=== PATIENT | male | born 1975 | race Caucasian/White ===

== ENCOUNTER 2017-02-04 05:15 | Emergency (ER) | payer BC ==
[2017-02-04 05:25] VITALS: BP 146/67
[2017-02-04] MEDS ORDERED: Sodium Chloride 0.9% 1000 ML 1,000 ML IV STA (05:35)
[2017-02-04] MEDS ORDERED: MOTRIN 600 MG PO ONE (05:42)
--- NOTE | 2017-02-04 05:42 | ERPHSYRPT ---
- History of Present Illness Time Seen by Provider: 02/04/17 05:30 Source: patient Exam Limitations: no limitations Patient Subjective Stated Complaint: fever x "couple days" tmax at home 102; c/ o dizziness and coughing Triage Nursing Assessment: congested, lungs CTA, Physician History: 41 y/o male comes to the ER with complaints of nonproductive cough, congestion and fever of 102 that started on Saturday. Pt arrives with a fever of 102. Pt also admits to having weakness and diffuse muscle aches. Pt denies any shortness of breath, chest pain but admits to some dizziness. His son has similar type symptoms. Timing/Duration: yesterday Cough Quality/Degree: mild Possible Cause: illness exposure Modifying Factors: Improves With: nothing Associated Symptoms: fever, chills, cough, dizziness, muscle aches Allergies/Adverse Reactions: No Known Drug Allergies Allergy (Verified 08/29/15 18:59) Home Medications: Losartan Potassium [Cozaar] 1 tab PO DAILY 05/11/13 [History] Aspirin 81 gm Chew [Baby Aspirin 81 mg Chew] 81 mg PO DAILY 11/30/14 [ History] Lorazepam [Ativan] 2 mg PO BID PRN 11/30/14 [History] Simvastatin 40 mg [Zocor 40 mg] 40 mg PO DAILY 11/30/14 [History] Venlafaxine HCl [Effexor Xr] 150 mg PO DAILY 11/30/14 [History] Hydrocodone Bit/Acetaminophen [[place] 7.5-325 Tablet] 1 ea BID 08/29/15 [History] Hx Tetanus, Diphtheria Vaccination/Date Given: Yes Hx Influenza Vaccination/Date Given: No Hx Pneumococcal Vaccination/Date Given: No Immunizations Up to Date: Yes - Review of Systems Constitutional: Fever, Chills, Weakness Eyes: No Symptoms Ears, Nose, & Throat: No Symptoms Respiratory: Cough, No Dyspnea Cardiac: No Chest Pain, No Edema, No Syncope Abdominal/Gastrointestinal: No Abdominal Pain, No Nausea, No Vomiting, No Diarrhea Genitourinary Symptoms: No Dysuria Musculoskeletal: Myalgias, No Back Pain, No Neck Pain Skin: No Rash Neurological: No Dizziness, No Focal Weakness, No Sensory Changes Psychological: No Symptoms Endocrine: No Symptoms All Other Systems: Reviewed and Negative - Past Medical History Pertinent Past Medical History: Yes Neurological History: No Pertinent History ENT History: No Pertinent History Cardiac History: Hypertension Respiratory History: No Pertinent History Endocrine Medical History: No Pertinent History Musculoskeletal History: No Pertinent History GI Medical History: No Pertinent History History: No Pertinent History Psycho-Social History: Anxiety, Depression, Panic Disorder Male Reproductive Disorders: No Pertinent History - Past Surgical History Past Surgical History: No Neuro Surgical History: No Pertinent History Cardiac: No Pertinent History Respiratory: No Pertinent History Gastrointestinal: No Pertinent History Genitourinary: No Pertinent History Musculoskeletal: No Pertinent History Male Surgical History: No Pertinent History - Social History Smoking Status: Current every day smoker How long have you smoked: 22 Exposure to second hand smoke: Yes Drug Use: none Patient Lives Alone: No - Nursing Vital Signs Nursing Vital Signs: Initial Vital Signs Temperature 102.5 F 02/04/17 05:21 Pulse Rate 110 H 02/04/17 05:21 Respiratory Rate 24 02/04/17 05:21 Blood Pressure 146/67 02/04/17 05:21 O2 Sat by Pulse Oximetry 95 02/04/17 05:21 Pain Scale Pain Intensity 1 - Physical Exam General Appearance: mild distress, alert Eye Exam: PERRL/EOMI, eyes nml inspection Ears, Nose, Throat Exam: normal ENT inspection, TMs normal, pharynx normal, moist mucous membranes Neck Exam: normal inspection, non-tender, supple, full range of motion Respiratory Exam: normal breath sounds, lungs clear, No chest tenderness, No respiratory distress Cardiovascular Exam: regular rate/rhythm, normal heart sounds Gastrointestinal/Abdomen Exam: soft, No tenderness Back Exam: normal inspection, No CVA tenderness, No vertebral tenderness Extremity Exam: normal inspection, normal range of motion Neurologic Exam: alert, oriented x 3, cooperative, normal mood/affect, sensation nml, No motor deficits Skin Exam: normal color, warm, dry, No rash Lymphatic Exam: No adenopathy SpO2: 95 Oxygen Delivery: Room Air - Course Nursing assessment & vital signs reviewed: Yes Ordered Tests: Active Orders 24 hr Category Date Time Status IV Insertion STAT Care 02/04/17 05:35 Active CHEST 2 VIEWS (PA AND LAT) Stat Exams 02/04/17 05:36 Taken BLOOD CULTURE Stat Lab 02/04/17 05:40 Ordered CBC W DIFF Stat Lab 02/04/17 05:40 Completed CMP Stat Lab 02/04/17 05:40 Completed Medication Summary Discontinued Medications Generic Name Dose Route Start Last Admin Trade Name Freq PRN Reason Stop Dose Admin Sodium Chloride 1,000 mls @ 999 mls/hr 02/04/17 05:35 02/04/17 05:51 Sodium Chloride 0.9% 1000 Ml IV 02/04/17 06:35 999 mls/hr .Q1H1M STA Administration Sodium Chloride Confirm 02/04/17 05:47 Sodium Chloride 0.9% 1000 Ml Administered 02/04/17 05:48 Dose 1,000 mls @ ud .ROUTE .STK-MED ONE Ibuprofen 600 mg 02/04/17 05:42 02/04/17 05:51 Motrin 600 Mg PO 02/04/17 05:43 600 mg STAT ONE Administration Ibuprofen Confirm 02/04/17 05:47 Motrin 600 Mg Administered 02/04/17 05:48 Dose 600 mg .ROUTE .STK-MED ONE Oseltamivir Phosphate 75 mg 02/04/17 06:51 Tamiflu 75mg Capsule PO 02/04/17 06:52 STAT ONE Lab/Rad Data: Laboratory Result Diagrams 02/04/17 05:40 02/04/17 05:40 Laboratory Results 02/04/17 02/04/17 02/04/17 Range/Units 05:40 05:40 05:40 WBC 11.7 H (4.0-10.5) K/mm3 RBC 4.37 (4.1-5.6) M/mm3 Hgb 12.8 (12.5-18.0) gm/dl Hct 39.0 L (42-50) % MCV 89.2 (78-100) fl MCH 29.3 (26-32) pg MCHC 32.8 (32-36) g/dl RDW 13.7 (11.5-14.0) % Plt Count 293 (150-450) K/mm3 MPV 9.3 (6-9.5) fl Gran % 77.0 H (36.0-66.0) % Lymphocytes % 13.0 L (24.0-44.0) % Monocytes % 9.7 (0.0-12.0) % Eosinophils % 0.0 (0.00-5.0) % Basophils % 0.3 (0.0-0.4) % Basophils # 0.03 (0-0.4) Sodium 133 L (136-145) mEq/L Potassium 3.5 (3.5-5.1) mEq/L Chloride 101 (98-107) mEq/L Carbon Dioxide 25.3 (21-32) mEq/L Anion Gap 9.8 (5-15) MEQ/L BUN 8 L (9-20) mg/dL Creatinine 1.22 (0.55-1.30) mg/dl Estimated GFR > 60 ML/MIN Glucose 113 H (70-110) MG/DL Calcium 8.8 (8.5-10.1) mg/dL Total Bilirubin 0.50 (0.2-1.0) mg/dL AST 29 (15-37) U/L ALT 34 (12-78) U/L Alkaline Phosphatase 59 (46-116) U/L Serum Total Protein 7.6 (6.4-8.2) gm/dL Albumin 3.5 (3.4-5.0) g/dL Influenza Type A Ag POSITIVE (NEGATIVE) Influenza Type B Ag NEGATIVE (NEGATIVE) RSV (PCR) NEGATIVE (Negative) - Progress Progress: improved Progress Note: 02/04/17 06:53 Pt feels better after receiving NS fluids. The CXR is within normal limits. The rest of the labs are unremarkable. The patient is Influenza A positive and will be started on tamiflu for 5 days. - Departure Time of Disposition: 06:54 Departure Disposition: Home Clinical Impression: Influenza A Fever Qualifiers: Fever type: unspecified Qualified Code(s): R50.9 - Fever, unspecified Condition: Stable Critical Care Time: No Referrals: AMAYA HILARIO [Primary Care Provider] - Instructions: Fever (Symptom) -- Adult, Influenza -- Adult Additional Instructions: Follow up with your primary care doctor if there is no improvement in fever, chills, cough or shortness of breath. Prescriptions: Oseltamivir Phosphate [Tamiflu] 75 mg PO BID #9 capsule
[2017-02-04] MEDS ORDERED: Sodium Chloride 0.9% 1000 ML 1,000 ML ONE (05:47)
[2017-02-04] MEDS ORDERED: MOTRIN 600 MG ONE (05:47)
[2017-02-04 05:57] LABS: BASOPHIL % 0.3 % (0.0-0.4); Mean Cell Volume 89.2 fl (78-100); Mean Corpuscular Hemoglobin 29.3 pg (26-32); Mean Platelet Volume 9.3 fl (6-9.5); Monocytes % 9.7 % (0.0-12.0); Platelet Count 293 K/mm3 (150-450); Red Blood Count 4.37 M/mm3 (4.1-5.6); Red Cell Distribution Width 13.7 % (11.5-14.0); White Blood Count 11.7 K/mm3 (4.0-10.5)
[2017-02-04 06:19] LABS: ALBUMIN 3.5 g/dL (3.4-5.0); ALKALINE PHOSPHATASE 59 U/L (46-116); ANION GAP 9.8 MEQ/L (5-15); BLOOD UREA NITROGEN 8 mg/dL (9-20); CHLORIDE 101 mEq/L (98-107); Carbon Dioxide 25.3 mEq/L (21-32); Glucose 113 MG/DL (70-110); Potassium 3.5 mEq/L (3.5-5.1); SGOT/AST 29 U/L (15-37); SGPT/ALT 34 U/L (12-78); SODIUM 133 mEq/L (136-145); Total Protein 7.6 gm/dL (6.4-8.2)
[2017-02-04 06:41] VITALS: PULSE 106
[2017-02-04] MEDS ORDERED: Tamiflu 75MG Capsule PO ONE ×2 (06:51→06:54)
[2017-02-04 06:56] VITALS: O2SAT 95
--- NOTE | 2017-02-04 08:48 | XRAY ---
Indication: Fever, cough, and body aches. Comparison: August 29, 2015. PA/lateral chest again demonstrates normal heart, lungs, and bony thorax.
== END 2017-02-04 07:06 | disposition home or self-care (01) ==
LOC: ED 05:15
DX: J11.1 Influenza due to unidentified influenza virus with other respiratory manifestations (principal); R50.9 Fever, unspecified
CPT/HCPCS: 36000; 36415; 71020; 80053; 85025; 87040; 87631; 96360; 99284; A9270-GY

== ENCOUNTER 2018-08-30 13:45 | Emergency (ER) | payer BC, OTHER ==
[2018-08-30 14:53] LABS: BASOPHIL % 0.4 % (0.0-0.4); Basophil (Absolute #) 0.05 (0-0.4); Eosinophil % 3.2 % (0.00-5.0); Eosinophil (Absolute #) 0.36 (0-0.5); Granulocyte Absolute (ANC) 5.77 (1.4-6.9); Granulocytes % 51.8 % (36.0-66.0); Hematocrit 42.2 % (42-50); Hemoglobin 14.2 gm/dl (12.5-18.0); Lymphocyte (Absolute #) 4.06 (1.0-4.6); Lymphocytes % 36.4 % (24.0-44.0); Mean Corpuscular Hgb Concent. 33.6 g/dl (32-36); Mean Platelet Volume 8.9 fl (6-9.5); Monocyte (Absolute #) 0.91 (0.0-1.3); Monocytes % 8.2 % (0.0-12.0); Platelet Count 334 K/mm3 (150-450); Red Blood Count 4.74 M/mm3 (4.1-5.6); Red Cell Distribution Width 14.5 % (11.5-14.0); White Blood Count 11.2 K/mm3 (4.0-10.5)
[2018-08-30 15:04] LABS: ANION GAP 9.8 MEQ/L (5-15); BLOOD UREA NITROGEN 8 mg/dL (9-20); CHLORIDE 106 mmol/L (98-107); Calcium 9.4 mg/dL (8.4-10.2); Carbon Dioxide 27 mmol/L (22-30); Creatinine 1 0.74 mg/dL (0.66-1.25); Glucose 87 mg/dL (74-106); SODIUM 139 mmol/L (137-145)
[2018-08-30 15:13] VITALS: BP 122/78; O2SAT 98
--- NOTE | 2018-08-30 15:27 | ERPHSYRPT ---
- History of Present Illness Time Seen by Provider: 08/30/18 14:13 Source: patient Exam Limitations: clinical condition Patient Subjective Stated Complaint: Pt states "I have not been feeling well for the past couple of days and I have been monitoring my blood pressure and I have noticed that my pressure has been pretty high. I took two blood pressure pill last night instead of one and today it seems a little better." Triage Nursing Assessment: PT presented through the front and placed in room 4. Pt alert and orietned X 3, skin pwd. Pt ambulates with an upright steady gait , able to speak in clear full clear sentences. Pt in no apparent respiratory distress. Physician History: PATIENT WITH A HISTORY OF HYPERTENSION, ANXIETY, DEPRESSION AND MORBID OBESITY COMPLAINS OF NOT FEELING WELL OVER PAST FEW DAYS, NOTICED BLOOD PRESSURE HAS BEEN ELEVATED PAST FEW WEEKS. DENIES HEADACHE, BLURRED VISION, SLURRED SPEECH OR CHEST PAIN. PATIENT TOOK HIS COZAAR 50MG YESTERDAY, EXTRA DOSE LAST NIGHT AND SCHEDULED DOSE THIS MORNING. Timing/Duration: week(s) Modifying Factors: Improves With: nothing Allergies/Adverse Reactions: No Known Drug Allergies Allergy (Verified 08/29/15 18:59) Home Medications: Losartan Potassium [Cozaar] 1 tab PO DAILY 05/11/13 [History] Aspirin 81 gm Chew [Baby Aspirin 81 mg Chew] 81 mg PO DAILY 11/30/14 [ History] Lorazepam [Ativan] 2 mg PO BID PRN 11/30/14 [History] Simvastatin 40 mg [Zocor 40 mg] 40 mg PO DAILY 11/30/14 [History] Venlafaxine HCl [Effexor Xr] 150 mg PO DAILY 11/30/14 [History] Hx Tetanus, Diphtheria Vaccination/Date Given: Yes Hx Influenza Vaccination/Date Given: No Hx Pneumococcal Vaccination/Date Given: No Immunizations Up to Date: Yes - Review of Systems Constitutional: No Fever, No Chills Eyes: No Symptoms Ears, Nose, & Throat: No Symptoms Respiratory: No Symptoms, No Cough, No Dyspnea Cardiac: No Symptoms, No Chest Pain, No Edema, No Syncope Abdominal/Gastrointestinal: No Abdominal Pain, No Nausea, No Vomiting, No Diarrhea Genitourinary Symptoms: No Symptoms, No Dysuria Musculoskeletal: No Symptoms, No Back Pain, No Neck Pain Skin: No Rash Neurological: No Dizziness, No Focal Weakness, No Sensory Changes Psychological: No Symptoms Endocrine: No Symptoms All Other Systems: Reviewed and Negative - Past Medical History Pertinent Past Medical History: Yes Neurological History: No Pertinent History ENT History: No Pertinent History Cardiac History: Hypertension Respiratory History: No Pertinent History Endocrine Medical History: No Pertinent History Musculoskeletal History: No Pertinent History GI Medical History: No Pertinent History History: No Pertinent History Psycho-Social History: Anxiety, Depression, Panic Disorder Male Reproductive Disorders: No Pertinent History - Past Surgical History Past Surgical History: No Neuro Surgical History: No Pertinent History Cardiac: No Pertinent History Respiratory: No Pertinent History Gastrointestinal: No Pertinent History Genitourinary: No Pertinent History Musculoskeletal: No Pertinent History Male Surgical History: No Pertinent History - Social History Smoking Status: Current every day smoker How long have you smoked: 24 year Exposure to second hand smoke: Yes Drug Use: none Patient Lives Alone: No - Nursing Vital Signs Nursing Vital Signs: Initial Vital Signs Temperature 98.4 F 08/30/18 14:01 Pulse Rate 80 08/30/18 14:01 Respiratory Rate 18 08/30/18 14:01 Blood Pressure 147/80 08/30/18 14:01 O2 Sat by Pulse Oximetry 97 08/30/18 14:01 Pain Scale Pain Intensity 0 - Physical Exam General Appearance: no apparent distress, alert Eye Exam: PERRL/EOMI, eyes nml inspection Ears, Nose, Throat Exam: normal ENT inspection, TMs normal, pharynx normal, moist mucous membranes Neck Exam: normal inspection, non-tender, supple, full range of motion Respiratory Exam: normal breath sounds, lungs clear, No respiratory distress Cardiovascular Exam: regular rate/rhythm, normal heart sounds, normal peripheral pulses Gastrointestinal/Abdomen Exam: soft, normal bowel sounds, No tenderness, No mass Back Exam: normal inspection, normal range of motion, No CVA tenderness, No vertebral tenderness Extremity Exam: normal inspection, normal range of motion, pelvis stable Neurologic Exam: alert, oriented x 3, cooperative, normal mood/affect, nml cerebellar function, nml station & gait, sensation nml, No motor deficits Skin Exam: normal color, warm, dry, No rash Lymphatic Exam: No adenopathy SpO2 Interpretation: normal SpO2: 98 - Course EKG Interpreted by Me: RATE, Sinus Rhythm (RATE 70) Ordered Tests: Active Orders 24 hr Category Date Time Status EKG-ER Only STAT Care 08/30/18 14:36 Active BMP Stat Lab 08/30/18 14:52 Completed CBC W DIFF Stat Lab 08/30/18 14:36 Completed TROPONIN Q3H Lab 08/30/18 14:52 Completed TROPONIN Q3H Lab 08/30/18 17:45 Ordered TROPONIN Q3H Lab 08/30/18 20:45 Ordered TROPONIN Q3H Lab 08/30/18 23:45 Ordered TROPONIN Q3H Lab 08/31/18 02:45 Ordered Lab/Rad Data: Laboratory Result Diagrams 08/30/18 14:36 08/30/18 14:52 Laboratory Results 08/30/18 08/30/18 08/30/18 Range/Units 14:52 14:52 14:36 WBC 11.2 H (4.0-10.5) K/mm3 RBC 4.74 (4.1-5.6) M/mm3 Hgb 14.2 (12.5-18.0) gm/dl Hct 42.2 (42-50) % MCV 89.0 (78-100) fl MCH 30.0 (26-32) pg MCHC 33.6 (32-36) g/dl RDW 14.5 H (11.5-14.0) % Plt Count 334 (150-450) K/mm3 MPV 8.9 (6-9.5) fl Gran % 51.8 (36.0-66.0) % Eos # (Auto) 0.36 (0-0.5) Absolute Lymphs (auto) 4.06 (1.0-4.6) Absolute Monos (auto) 0.91 (0.0-1.3) Lymphocytes % 36.4 (24.0-44.0) % Monocytes % 8.2 (0.0-12.0) % Eosinophils % 3.2 (0.00-5.0) % Basophils % 0.4 (0.0-0.4) % Absolute Granulocytes 5.77 (1.4-6.9) Basophils # 0.05 (0-0.4) Sodium 139 (137-145) mmol/L Potassium 4.0 (3.5-5.1) mmol/L Chloride 106 (98-107) mmol/L Carbon Dioxide 27 (22-30) mmol/L Anion Gap 9.8 (5-15) MEQ/L BUN 8 L (9-20) mg/dL Creatinine 0.74 (0.66-1.25) mg/dL Estimated GFR > 60.0 ML/MIN Glucose 87 (74-106) mg/dL Calcium 9.4 (8.4-10.2) mg/dL Troponin I < 0.012 (0.000-0.034) ng/mL - Progress Progress Note: 08/30/18 15:34 DISCUSSED WITH PATIENT CONCERNING INCREASING DOSE OF COZAAR TO 100MG DAILY, ALL LAB TEST REVIEWED AND ARE NORMAL. Counseled pt/family regarding: lab results, diagnosis, need for follow-up - Departure Departure Disposition: Home Clinical Impression: HYPERTENSION Condition: Stable Critical Care Time: No Referrals: AMAYA HILARIO [Primary Care Provider] - Additional Instructions: INCREASE DOSE OF COZAAR TO 100MG EACH MORNING. CONSULT YOUR PRIMARY CARE PROVIDER IN 2 DAYS FOR APPOINTMENT. Prescriptions: Losartan Potassium [Cozaar] 100 mg PO DAILY #30 tablet
[2018-08-30 15:56] VITALS: PULSE 64
== END 2018-08-30 15:56 | disposition home or self-care (01) ==
LOC: ED 13:45
DX: I10 Essential (primary) hypertension (principal); F41.9 Anxiety disorder, unspecified; F32.9 Major depressive disorder, single episode, unspecified
CPT/HCPCS: 36415; 80048; 84484; 85025; 93005; 99284

== ENCOUNTER 2020-02-08 06:58 | Emergency (ER) | payer SELFPAY ==
[2020-02-08 07:15] VITALS: O2SAT 98
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
[2020-02-08 07:47] VITALS: BP 141/94; PULSE 94
== END 2020-02-08 07:51 | disposition home or self-care (01) ==
LOC: ED 06:58
DX: S80.02XA Contusion of left knee, initial encounter (principal); S80.01XA Contusion of right knee, initial encounter; V40.6XXA Car passenger injured in collision with pedestrian or animal in traffic accident, initial encounter; M25.562 Pain in left knee; M25.561 Pain in right knee; Z79.899 Other long term (current) drug therapy
CPT/HCPCS: 99284

== ENCOUNTER 2020-04-22 12:45 | Emergency (ER) | payer SELFPAY ==
[2020-04-22] MEDS ORDERED: Sodium Chloride 0.9% 1000 ML 1,000 ML IV STA (13:01)
[2020-04-22] MEDS ORDERED: Sodium Chloride 0.9% 1000 ML 1,000 ML ONE (13:07)
[2020-04-22 13:38] LABS: Appearance SLIGHTLY CLOUDY (CLEAR); Bilirubin NEGATIVE (NEGATIVE); Blood NEGATIVE Ery/ul (0-5); Glucose NEGATIVE (NEGATIVE); Ketones NEGATIVE (NEGATIVE); Leukocyte Esterase NEGATIVE (NEGATIVE); Mucus SLIGHT /HPF (NEGATIVE); Nitrite NEGATIVE (NEGATIVE); Protein,Urine Dip NEGATIVE (Negative); RBC 0-2 /HPF (0-2); Specific Gravity 1.018 (1.005-1.025); Urobilinogen NEGATIVE mg/dL (0-1)
--- NOTE | 2020-04-22 13:38 | XRAY ---
Indication: Cough. Comparison: September 17, 2019. Portable chest again demonstrates normal heart, lungs, and bony thorax.
[2020-04-22 13:47] LABS: Absolute Neutrophil Ct (ANC) 6.96 (1.4-6.9); BASOPHIL % 0.2 % (0.0-0.4); Basophil (Absolute #) 0.02 (0-0.4); Eosinophil % 1.5 % (0.00-5.0); Eosinophil (Absolute #) 0.18 (0-0.5); Hematocrit 40.3 % (42-50); Hemoglobin 13.3 gm/dl (12.5-18.0); Lymphocyte (Absolute #) 3.55 (1.0-4.6); Lymphocytes % 30.3 % (24.0-44.0); Mean Corpuscular Hemoglobin 28.7 pg (26-32); Monocytes % 8.5 % (0.0-12.0); Neutrophil % 59.5 % (36.0-66.0); Platelet Count 398 K/mm3 (150-450); Red Blood Count 4.63 M/mm3 (4.1-5.6); Red Cell Distribution Width 14.4 % (11.5-14.0); White Blood Count 11.7 K/mm3 (4.0-10.5)
[2020-04-22 13:58] LABS: INR 1.16 (0.8-3.0); PROTIME 13.1 SECONDS (8.83-12.87)
[2020-04-22 14:06] LABS: ALBUMIN 4.7 g/dL (3.5-5.0); ALKALINE PHOSPHATASE 64 U/L (38-126); ANION GAP 12.9 MEQ/L (5-15); BLOOD UREA NITROGEN 7 mg/dL (9-20); CHLORIDE 99 mmol/L (98-107); Calcium 9.4 mg/dL (8.4-10.2); Carbon Dioxide 27 mmol/L (22-30); Creatinine 1 0.91 mg/dL (0.66-1.25); EST GLOMERULAR FILTRATION RATE > 60.0 ML/MIN; Glucose 117 mg/dL (74-106); LDH-LACTATE DEHYDROGENASE 197 U/L (120-246); NT PRO BNP 25.8 pg/mL (0-450); Potassium 3.3 mmol/L (3.5-5.1); SGOT/AST 36 U/L (17-59); SGPT/ALT 30 U/L (0-50); SODIUM 136 mmol/L (137-145); Total Protein 8.6 g/dL (6.3-8.2)
[2020-04-22 14:17] LABS: INFLUENZA A NEGATIVE (NEGATIVE); INFLUENZA B NEGATIVE (NEGATIVE)
--- NOTE | 2020-04-22 14:42 | ERPHSYRPT ---
- History of Present Illness Time Seen by Provider: 04/22/20 12:55 Patient Subjective Stated Complaint: Fever Triage Nursing Assessment: Patient ambulated back to ED and transferred self to bed. Patient A+O x3. Patietn's skin pink, warm and dry. Patient complains of fever, cough, increased SOB, fatigue and body aches for the past 4 days. Patient complains of trouble urinating. Lungs clear a/p dorian. No edema noted. Patient states his fever as been 99.0-100.1. Physician History: Patient is a 44-year-old male who presents with a complaint of fever shortness of breath and cough for 4 days. He is cough has been producing some brown sputum has had fever to 101 degrees. He also has noted some wheezing he has been sick for 2 weeks but the last 4 days he has been short of breath and worse. 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 He has had night sweats he also wonders about a urinary tract infection. Timing/Duration: week(s) (2) Cough Quality/Degree: productive cough, sputum Possible Cause: illness exposure Associated Symptoms: fever, chills, cough, muscle aches, shortness of breath Allergies/Adverse Reactions: doxycycline Allergy (Verified 04/22/20 12:48) Hives Reports "Hives" Home Medications: Aspirin 81 gm Chew [Baby Aspirin 81 mg Chew] 81 mg PO DAILY 11/30/14 [History] Lorazepam [Ativan] 2 mg PO BID PRN 11/30/14 [History] Simvastatin 40 mg [Zocor 40 mg] 40 mg PO DAILY 11/30/14 [History] Venlafaxine HCl [Effexor Xr] 150 mg PO DAILY 11/30/14 [History] Amlodipine Besylate [Norvasc] 5 mg PO BID 02/08/20 [History] Hx Tetanus, Diphtheria Vaccination/Date Given: Yes Hx Influenza Vaccination/Date Given: No Hx Pneumococcal Vaccination/Date Given: No Immunizations Up to Date: Yes Travel Risk - International Travel Have you traveled outside of the country in past 3 weeks: No - Coronavirus Screening Are you exhibiting any of the following symptoms?: Yes Symptoms: Fever, Cough: New Onset, Headaches/Body Aches/Fatigue Close contact with a COVID-19 positive Pt in past 14-21 Days: No - Review of Systems Constitutional: Fever, Chills, Night Sweats Eyes: No Symptoms Ears, Nose, & Throat: No Symptoms, Nose Congestion, Nose Discharge Respiratory: Cough, Dyspnea, Wheezing Cardiac: No Chest Pain, No Edema, No Syncope Abdominal/Gastrointestinal: No Abdominal Pain, No Nausea, No Vomiting, No Diarrhea Genitourinary Symptoms: No Dysuria Musculoskeletal: No Back Pain, No Neck Pain Skin: No Rash Neurological: No Dizziness, No Focal Weakness, No Sensory Changes Psychological: No Symptoms Endocrine: No Symptoms All Other Systems: Reviewed and Negative - Past Medical History Pertinent Past Medical History: Yes Neurological History: No Pertinent History ENT History: No Pertinent History Cardiac History: Hypertension Respiratory History: No Pertinent History Endocrine Medical History: No Pertinent History Musculoskeletal History: No Pertinent History GI Medical History: No Pertinent History History: No Pertinent History Psycho-Social History: Anxiety, Depression, Panic Disorder Male Reproductive Disorders: No Pertinent History - Past Surgical History Past Surgical History: No Neuro Surgical History: No Pertinent History Cardiac: No Pertinent History Respiratory: No Pertinent History Gastrointestinal: No Pertinent History Genitourinary: No Pertinent History Musculoskeletal: No Pertinent History Male Surgical History: No Pertinent History - Social History Smoking Status: Current every day smoker How long have you smoked: 24 year Exposure to second hand smoke: No Drug Use: none Patient Lives Alone: No - Nursing Vital Signs Nursing Vital Signs: Initial Vital Signs Temperature 98.9 F 04/22/20 12:49 Pulse Rate 103 H 04/22/20 12:49 Respiratory Rate 18 04/22/20 12:49 Blood Pressure 127/92 04/22/20 12:49 O2 Sat by Pulse Oximetry 98 04/22/20 12:49 Pain Scale Pain Intensity 5 - Physical Exam General Appearance: mild distress, alert Eye Exam: PERRL/EOMI, eyes nml inspection Ears, Nose, Throat Exam: normal ENT inspection, TMs normal, pharynx normal, moist mucous membranes Neck Exam: normal inspection, non-tender, supple, full range of motion Respiratory Exam: normal breath sounds, lungs clear, No respiratory distress Cardiovascular Exam: regular rate/rhythm, normal heart sounds Gastrointestinal/Abdomen Exam: soft, No tenderness Back Exam: normal inspection, No CVA tenderness, No vertebral tenderness Extremity Exam: normal inspection, normal range of motion Neurologic Exam: alert, oriented x 3, cooperative, normal mood/affect, sensation nml, No motor deficits Skin Exam: normal color, warm, dry, No rash Lymphatic Exam: No adenopathy SpO2: 95 - Course Nursing assessment & vital signs reviewed: Yes EKG Interpreted by Me: RATE (91), NORMAL AXIS, prolonged QT interval, Non- specific ST Changes Ordered Tests: Active Orders 24 hr Category Date Time Status EKG-ER Only STAT Care 04/22/20 13:01 Active IV Insertion STAT Care 04/22/20 13:01 Active CHEST 1 VIEW (PORTABLE) Stat Exams 04/22/20 13:01 Completed BLOOD CULTURE Stat Lab 04/22/20 13:23 Received CBC W DIFF Stat Lab 04/22/20 13:35 Completed CMP Stat Lab 04/22/20 13:35 Completed CULTURE,SPUTUM Stat Lab 04/22/20 13:01 Ordered D-DIMER QUANTITATIVE Stat Lab 04/22/20 13:35 Completed INFLUENZA A+B DILAN Stat Lab 04/22/20 13:35 Completed LDH-LACTATE DEHYDROGENASE Stat Lab 04/22/20 13:35 Completed Lactic Acid Stat Lab 04/22/20 13:25 Completed NT PRO BNP Stat Lab 04/22/20 13:35 Completed PROCALCITONIN Stat Lab 04/22/20 13:35 Completed PROTIME WITH INR Stat Lab 04/22/20 13:35 Completed TROPONIN Q3H Lab 04/22/20 13:35 Completed TROPONIN Q3H Lab 04/22/20 16:15 Ordered TROPONIN Q3H Lab 04/22/20 19:15 Ordered TROPONIN Q3H Lab 04/22/20 22:15 Ordered UA W/RFX UR CULTURE Stat Lab 04/22/20 13:07 Completed Medication Summary Discontinued Medications Generic Name Dose Route Start Last Admin Trade Name Freq PRN Reason Stop Dose Admin Sodium Chloride 1,000 mls @ 999 mls/hr 04/22/20 13:01 04/22/20 14:14 Sodium Chloride 0.9% 1000 Ml IV 04/22/20 14:01 Infused .Q1H1M STA Infusion Sodium Chloride Confirm 04/22/20 13:07 Sodium Chloride 0.9% 1000 Ml Administered 04/22/20 13:08 Dose 1,000 mls @ ud .ROUTE .STK-MED ONE Lab/Rad Data: Laboratory Result Diagrams 04/22/20 13:35 04/22/20 13:35 Laboratory Results 04/22/20 04/22/20 04/22/20 Range/Units 13:35 13:35 13:35 WBC (4.0-10.5) K/mm3 RBC (4.1-5.6) M/mm3 Hgb (12.5-18.0) gm/dl Hct (42-50) % MCV (78-100) fl MCH (26-32) pg MCHC (32-36) g/dl RDW (11.5-14.0) % Plt Count (150-450) K/mm3 MPV (7.5-11.0) fl Gran % (36.0-66.0) % Eos # (Auto) (0-0.5) Absolute Lymphs (auto) (1.0-4.6) Absolute Monos (auto) (0.0-1.3) Lymphocytes % (24.0-44.0) % Monocytes % (0.0-12.0) % Eosinophils % (0.00-5.0) % Basophils % (0.0-0.4) % Absolute Granulocytes (1.4-6.9) Basophils # (0-0.4) PT 13.1 H (8.83-12.87) SECONDS INR 1.16 (0.8-3.0) D-Dimer 318 (215-500) ng/mL Sodium (137-145) mmol/L Potassium (3.5-5.1) mmol/L Chloride (98-107) mmol/L Carbon Dioxide (22-30) mmol/L Anion Gap (5-15) MEQ/L BUN (9-20) mg/dL Creatinine (0.66-1.25) mg/dL Estimated GFR ML/MIN Glucose (74-106) mg/dL Lactic Acid (0.4-2.0) Calcium (8.4-10.2) mg/dL Total Bilirubin (0.2-1.3) mg/dL AST (17-59) U/L ALT (0-50) U/L Alkaline Phosphatase (38-126) U/L Lactate Dehydrogenase (120-246) U/L Troponin I < 0.012 (0.000-0.034) ng/mL NT-Pro-B Natriuret Pep (0-450) pg/mL Serum Total Protein (6.3-8.2) g/dL Albumin (3.5-5.0) g/dL Procalcitonin 0.050 (0.030-0.080) ng/mL Urine Color (YELLOW) Urine Appearance (CLEAR) Urine pH (5-6) Ur Specific [place] (1.005-1.025) Urine Protein (Negative) Urine Ketones (NEGATIVE) Urine Blood (0-5) Jeyson/ul Urine Nitrite (NEGATIVE) Urine Bilirubin (NEGATIVE) Urine Urobilinogen (0-1) mg/dL Ur Leukocyte Esterase (NEGATIVE) Urine WBC (Auto) (0-5) /HPF Urine RBC (Auto) (0-2) /HPF U Epithel Cells (Auto) (FEW) /HPF Urine Bacteria (Auto) (NEGATIVE) /HPF Urine Mucus (Auto) (NEGATIVE) /HPF Urine Culture Reflexed (NO) Urine Glucose (NEGATIVE) mg/dL Influenza Type A Ag (NEGATIVE) Influenza Type B Ag (NEGATIVE) 04/22/20 04/22/20 04/22/20 Range/Units 13:35 13:35 13:35 WBC 11.7 H (4.0-10.5) K/mm3 RBC 4.63 (4.1-5.6) M/mm3 Hgb 13.3 (12.5-18.0) gm/dl Hct 40.3 L (42-50) % MCV 87.0 (78-100) fl MCH 28.7 (26-32) pg MCHC 33.0 (32-36) g/dl RDW 14.4 H (11.5-14.0) % Plt Count 398 (150-450) K/mm3 MPV 9.0 (7.5-11.0) fl Gran % 59.5 (36.0-66.0) % Eos # (Auto) 0.18 (0-0.5) Absolute Lymphs (auto) 3.55 (1.0-4.6) Absolute Monos (auto) 1.00 (0.0-1.3) Lymphocytes % 30.3 (24.0-44.0) % Monocytes % 8.5 (0.0-12.0) % Eosinophils % 1.5 (0.00-5.0) % Basophils % 0.2 (0.0-0.4) % Absolute Granulocytes 6.96 H (1.4-6.9) Basophils # 0.02 (0-0.4) PT (8.83-12.87) SECONDS INR (0.8-3.0) D-Dimer (215-500) ng/mL Sodium 136 L (137-145) mmol/L Potassium 3.3 L (3.5-5.1) mmol/L Chloride 99 (98-107) mmol/L Carbon Dioxide 27 (22-30) mmol/L Anion Gap 12.9 (5-15) MEQ/L BUN 7 L (9-20) mg/dL Creatinine 0.91 (0.66-1.25) mg/dL Estimated GFR > 60.0 ML/MIN Glucose 117 H (74-106) mg/dL Lactic Acid (0.4-2.0) Calcium 9.4 (8.4-10.2) mg/dL Total Bilirubin 0.30 (0.2-1.3) mg/dL AST 36 (17-59) U/L ALT 30 (0-50) U/L Alkaline Phosphatase 64 (38-126) U/L Lactate Dehydrogenase 197 (120-246) U/L Troponin I (0.000-0.034) ng/mL NT-Pro-B Natriuret Pep 25.8 (0-450) pg/mL Serum Total Protein 8.6 H (6.3-8.2) g/dL Albumin 4.7 (3.5-5.0) g/dL Procalcitonin (0.030-0.080) ng/mL Urine Color (YELLOW) Urine Appearance (CLEAR) Urine pH (5-6) Ur Specific [place] (1.005-1.025) Urine Protein (Negative) Urine Ketones (NEGATIVE) Urine Blood (0-5) Jeyson/ul Urine Nitrite (NEGATIVE) Urine Bilirubin (NEGATIVE) Urine Urobilinogen (0-1) mg/dL Ur Leukocyte Esterase (NEGATIVE) Urine WBC (Auto) (0-5) /HPF Urine RBC (Auto) (0-2) /HPF U Epithel Cells (Auto) (FEW) /HPF Urine Bacteria (Auto) (NEGATIVE) /HPF Urine Mucus (Auto) (NEGATIVE) /HPF Urine Culture Reflexed (NO) Urine Glucose (NEGATIVE) mg/dL Influenza Type A Ag NEGATIVE (NEGATIVE) Influenza Type B Ag NEGATIVE (NEGATIVE) 03/05/21 03/05/21 Range/Units 13:25 13:07 WBC (4.0-10.5) K/mm3 RBC (4.1-5.6) M/mm3 Hgb (12.5-18.0) gm/dl Hct (42-50) % MCV (78-100) fl MCH (26-32) pg MCHC (32-36) g/dl RDW (11.5-14.0) % Plt Count (150-450) K/mm3 MPV (7.5-11.0) fl Gran % (36.0-66.0) % Eos # (Auto) (0-0.5) Absolute Lymphs (auto) (1.0-4.6) Absolute Monos (auto) (0.0-1.3) Lymphocytes % (24.0-44.0) % Monocytes % (0.0-12.0) % Eosinophils % (0.00-5.0) % Basophils % (0.0-0.4) % Absolute Granulocytes (1.4-6.9) Basophils # (0-0.4) PT (8.83-12.87) SECONDS INR (0.8-3.0) D-Dimer (215-500) ng/mL Sodium (137-145) mmol/L Potassium (3.5-5.1) mmol/L Chloride (98-107) mmol/L Carbon Dioxide (22-30) mmol/L Anion Gap (5-15) MEQ/L BUN (9-20) mg/dL Creatinine (0.66-1.25) mg/dL Estimated GFR ML/MIN Glucose (74-106) mg/dL Lactic Acid 1.4 (0.4-2.0) Calcium (8.4-10.2) mg/dL Total Bilirubin (0.2-1.3) mg/dL AST (17-59) U/L ALT (0-50) U/L Alkaline Phosphatase (38-126) U/L Lactate Dehydrogenase (120-246) U/L Troponin I (0.000-0.034) ng/mL NT-Pro-B Natriuret Pep (0-450) pg/mL Serum Total Protein (6.3-8.2) g/dL Albumin (3.5-5.0) g/dL Procalcitonin (0.030-0.080) ng/mL Urine Color YELLOW (YELLOW) Urine Appearance SLIGHTLY CLOUDY (CLEAR) Urine pH 7.0 (5-6) Ur Specific [place] 1.018 (1.005-1.025) Urine Protein NEGATIVE (Negative) Urine Ketones NEGATIVE (NEGATIVE) Urine Blood NEGATIVE (0-5) Jeyson/ul Urine Nitrite NEGATIVE (NEGATIVE) Urine Bilirubin NEGATIVE (NEGATIVE) Urine Urobilinogen NEGATIVE (0-1) mg/dL Ur Leukocyte Esterase NEGATIVE (NEGATIVE) Urine WBC (Auto) NONE (0-5) /HPF Urine RBC (Auto) 0-2 (0-2) /HPF U Epithel Cells (Auto) NONE (FEW) /HPF Urine Bacteria (Auto) NONE (NEGATIVE) /HPF Urine Mucus (Auto) SLIGHT (NEGATIVE) /HPF Urine Culture Reflexed NO (NO) Urine Glucose NEGATIVE (NEGATIVE) mg/dL Influenza Type A Ag (NEGATIVE) Influenza Type B Ag (NEGATIVE) - Progress Progress: unchanged Air Movement: good Blood Culture(s) Obtained: No Antibiotics given: Yes - Departure Departure Disposition: Home Clinical Impression: Respiratory infection Condition: Stable Critical Care Time: No Referrals: AMAYA HILARIO [Primary Care Provider] - Instructions: Fever, Adult (DC) Prescriptions: Cephalexin Mh 500 mg [Keflex 500 mg] 500 mg PO TID #21 capsule
[2020-04-22 14:50] VITALS: BP 112/66; PULSE 80; O2SAT 99
== END 2020-04-22 14:59 | disposition home or self-care (01) ==
LOC: ED 12:45
DX: R50.9 Fever, unspecified (principal); R05 Cough; R06.02 Shortness of breath; J98.8 Other specified respiratory disorders; R53.83 Other fatigue; I10 Essential (primary) hypertension; F17.210 Nicotine dependence, cigarettes, uncomplicated; Z79.899 Other long term (current) drug therapy
CPT/HCPCS: 36000; 36415; 71045; 80053; 81001; 83605; 83615; 83880; 84145; 84484; 85025; 85379; 85610; 86140; 87040; 87400; 93005; 96360; 99284; U0003

== ENCOUNTER 2021-03-07 13:43 | Emergency (ER) | payer OTHER ==
--- NOTE | 2021-03-07 14:37 | XRAY ---
Indication: Cough.. Comparison: April 22, 2020. Portable apical lordotic chest again demonstrates normal heart, lungs, and bony thorax.
--- NOTE | 2021-03-07 15:02 | ERPHSYRPT ---
- History of Present Illness Source: patient Exam Limitations: no limitations Patient Subjective Stated Complaint: "I've had a intermittent fevers and a cough." Triage Nursing Assessment: patient reported a progressive two week onset of productive cough and intermittent fevers. He has had multiple COVID, flu, and RSV tests through his work that have all been negative. He finished a z-pack on 03/04/21 with only mild relief. Denied headache, sinus pressure, post-nasal drip, shortness of breath either exertional or orthopnea, chest pain, or N/V/D. Pupils 3mm bilateral with brisk reaction. Bilateral EACs without erythema. Right TM with mild effusions and no errythema/exudate. Left TM pearly carlin with positive cone of light. Oral mucosa pink/moist without ulcerations/lesion. Tonsils without erythema/edema/exudate. No cervical lymphadenopathy. Symmetrical chest expansion. heart tones S1/S2 RRR without extra sounds. Lungs vesicular without adventitious sounds. peripheral pulses +3 bilateral. gait steady without complications or assisstive devices. Physician History: 45 yo wm w cough/coryza/intermittant fever x 2 wks. Pt smokes 1.5 ppd. He has had myalgias/arthralias and N/V that resolved eaqrly in the illness. 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 Hre just finished a course of Zithromax. Timing/Duration: other (2 wks) Activities at Onset: rest Severity of Dyspnea-Max: mild Severity of Dyspnea-Current: mild Possible Cause: occasional episodes Modifying Factors: Improves With: coughing, deep breath, exertion Associated Symptoms: cough, fever, No chest pain/discomfort, No edema, No insomnia, No loss of appetite, No lightheadedness, No wheezing, No weakness, No ankle swelling, No chills, No hemoptysis, No calf pain, No dizziness, No heaviness, No heart racing, No lightheadedness, No leg swelling, No muscle spasms feet, No muscle spasms hands Allergies/Adverse Reactions: doxycycline Allergy (Verified 03/07/21 13:57) Hives Reports "Hives" Home Medications: Aspirin 81 gm Chew [Baby Aspirin 81 mg Chew] 81 mg PO DAILY 11/30/14 [History] Venlafaxine HCl [Effexor Xr] 150 mg PO DAILY 11/30/14 [History] Amlodipine Besylate [Norvasc] 5 mg PO BID 02/08/20 [History] clonazePAM [Clonazepam] 1 mg PO BID 03/07/21 [History] Hx Tetanus, Diphtheria Vaccination/Date Given: Yes Hx Influenza Vaccination/Date Given: No Hx Pneumococcal Vaccination/Date Given: No Travel Risk - International Travel Have you traveled outside of the country in past 3 weeks: No - Coronavirus Screening Are you exhibiting any of the following symptoms?: No Close contact with a COVID-19 positive Pt in past 14-21 Days: No - Vaccine Status Have you recieved a Covid-19 vaccination: No - Review of Systems Constitutional: No Symptoms, Fever, Chills, Fatigue Eyes: No Symptoms Ears, Nose, & Throat: No Symptoms, Nose Pain, Nose Congestion, Nose Discharge Respiratory: No Symptoms, Cough, No Dyspnea, No Dyspnea on Exertion (DORMAN) Cardiac: No Symptoms Abdominal/Gastrointestinal: No Symptoms, Nausea, Vomiting Genitourinary Symptoms: No Symptoms Musculoskeletal: No Symptoms Skin: No Symptoms Neurological: No Symptoms Psychological: No Symptoms Endocrine: No Symptoms Hematologic/Lymphatic: No Symptoms Immunological/Allergic: No Symptoms - Past Medical History Pertinent Past Medical History: Yes Neurological History: No Pertinent History ENT History: No Pertinent History Cardiac History: Hypertension Respiratory History: No Pertinent History Endocrine Medical History: No Pertinent History Musculoskeletal History: No Pertinent History GI Medical History: No Pertinent History History: No Pertinent History Psycho-Social History: Anxiety, Depression, Panic Disorder Male Reproductive Disorders: No Pertinent History - Past Surgical History Past Surgical History: No Neuro Surgical History: No Pertinent History Cardiac: No Pertinent History Respiratory: No Pertinent History Gastrointestinal: No Pertinent History Genitourinary: No Pertinent History Musculoskeletal: No Pertinent History Male Surgical History: No Pertinent History - Social History Smoking Status: Current every day smoker How long have you smoked: 24 year Exposure to second hand smoke: No Drug Use: none Patient Lives Alone: No Significant Family History: no pertinent family hx - Nursing Vital Signs Nursing Vital Signs: Initial Vital Signs Temperature 98.8 F 03/07/21 13:43 Pulse Rate 100 H 03/07/21 13:43 Respiratory Rate 16 03/07/21 13:43 Blood Pressure 123/82 03/07/21 13:43 O2 Sat by Pulse Oximetry 96 03/07/21 13:43 Pain Scale Pain Intensity 2 Borderline tachy - Physical Exam General Appearance: no apparent distress Eye Exam: PERRL/EOMI, eyes nml inspection Ears, Nose, Throat Exam: hearing grossly normal, normal ENT inspection, normal pharynx Neck Exam: normal inspection, non-tender, supple, full range of motion, No Brudzinski, No Kernig's, No meningismus Respiratory Exam: normal breath sounds, lungs clear, airway intact, No respiratory distress Cardiovascular/Chest Exam: normal heart sounds, regular rate/rhythm, normal peripheral pulses, No murmur Abdominal/Gastrointestinal Exam: soft, normal bowel sounds, No tenderness Extremity Exam: non-tender, normal range of motion, normal inspection, normal capillary refill, no calf tenderness, no pedal edema Peripheral Pulses Exam: carotid (R): 2+, carotid (L): 2+ Neurologic Exam: alert, oriented x 3, cooperative, education program specialist II-XII nml as tested, normal mood/affect, nml cerebellar function, nml station & gait, sensation nml, No motor deficits, No sensory deficit Skin Exam: normal color, warm, dry Lymphatic Exam: No adenopathy SpO2 Interpretation: normal SpO2: 96 O2 Delivery: Room Air Ordered Tests: Active Orders 24 hr Category Date Time Status CHEST 1 VIEW (PORTABLE) Stat Exams 03/07/21 14:14 Completed UA W/RFX UR CULTURE Stat Lab 03/07/21 15:55 Completed Lab/Rad Data: Laboratory Results 03/07/21 03/07/21 Range/Units 15:55 14:35 Urine Color YELLOW (YELLOW) Urine Appearance SLIGHTLY CLOUDY (CLEAR) Urine pH 6.0 (5-6) Ur Specific [place] 1.023 (1.005-1.025) Urine Protein NEGATIVE (Negative) Urine Ketones NEGATIVE (NEGATIVE) Urine Blood NEGATIVE (0-5) Jeyson/ul Urine Nitrite NEGATIVE (NEGATIVE) Urine Bilirubin NEGATIVE (NEGATIVE) Urine Urobilinogen 2 (0-1) mg/dL Ur Leukocyte Esterase NEGATIVE (NEGATIVE) Urine WBC (Auto) NONE (0-5) /HPF Urine RBC (Auto) NONE (0-2) /HPF U Epithel Cells (Auto) NONE (FEW) /HPF Urine Bacteria (Auto) NONE (NEGATIVE) /HPF Urine Mucus (Auto) SLIGHT (NEGATIVE) /HPF Urine Culture Reflexed NO (NO) Urine Glucose NEGATIVE (NEGATIVE) mg/dL Influenza Type A Ag NEGATIVE (NEGATIVE) Influenza Type B Ag NEGATIVE (NEGATIVE) RSV (PCR) NEGATIVE (Negative) SARS-CoV-2 (PCR) NEGATIVE (NEGATIVE) - Progress Counseled pt/family regarding: lab results, diagnosis, need for follow-up, rad results - Departure Departure Disposition: Home Clinical Impression: Bronchitis Condition: Stable Critical Care Time: No Referrals: AMAYA HILARIO [Primary Care Provider] - Follow up/PCP as directed Instructions: Acute Bronchitis Additional Instructions: Levaquin once a day for 5 days Follow up with your family MD Return to ER for worsening cough or increasing shortness of breath Prescriptions: levoFLOXacin [Levofloxacin] 750 mg PO DAILY #5 tablet
[2021-03-07 15:14] LABS: INFLUENZA A NEGATIVE (NEGATIVE); INFLUENZA B NEGATIVE (NEGATIVE); RESPIRATORY SYNCTIAL VIRUS NEGATIVE (Negative); SARS-CoV-2 Xpert Express NEGATIVE (NEGATIVE)
[2021-03-07 15:20] VITALS: BP 110/64
[2021-03-07 16:18] LABS: Appearance SLIGHTLY CLOUDY (CLEAR); Bilirubin NEGATIVE (NEGATIVE); Blood NEGATIVE Ery/ul (0-5); Glucose NEGATIVE (NEGATIVE); Ketones NEGATIVE (NEGATIVE); Leukocyte Esterase NEGATIVE (NEGATIVE); Mucus SLIGHT /HPF (NEGATIVE); Nitrite NEGATIVE (NEGATIVE); Protein,Urine Dip NEGATIVE (Negative); Specific Gravity 1.023 (1.005-1.025); Urobilinogen 2 mg/dL (0-1)
[2021-03-07 16:48] VITALS: PULSE 84
[2021-03-07 20:44] VITALS: O2SAT 96
== END 2021-03-07 16:51 | disposition home or self-care (01) ==
LOC: ED 13:43
DX: J20.9 Acute bronchitis, unspecified (principal); Z72.0 Tobacco use; R05.9 Cough, unspecified; R50.9 Fever, unspecified; I10 Essential (primary) hypertension
CPT/HCPCS: 0241U; 71045; 81001; 99284

== ENCOUNTER 2022-02-03 12:31 | Emergency (ER) | payer SELFPAY ==
[2022-02-03 13:04] VITALS: O2SAT 100
[2022-02-03 13:37] LABS: INFLUENZA A NEGATIVE (NEGATIVE); INFLUENZA B NEGATIVE (NEGATIVE); RESPIRATORY SYNCTIAL VIRUS NEGATIVE (Negative)
[2022-02-03 13:38] LABS: Hyaline Casts 0-2 /LPF (0-2)
[2022-02-03 13:40] LABS: Appearance CLEAR (CLEAR); Bilirubin NEGATIVE (NEGATIVE); Dipstick done @ ? MAIN LAB; Glucose NEGATIVE (NEGATIVE); Ketones NEGATIVE (NEGATIVE); Nitrite NEGATIVE (NEGATIVE); Ph 6.5 (5-6); Protein,Urine Dip NEGATIVE (Negative); RBC NEGATIVE Ery/ul (0-5); Specific Gravity 1.025 (1.005-1.025); Urine Cultured Indicated? NO; Urobilinogen 0.2 mg/dL (0-1)
[2022-02-03 13:41] LABS: Bacteria NONE SEEN /HPF (NEGATIVE)
[2022-02-03 13:50] LABS: SARS-CoV-2 Xpert Express POSITIVE (NEGATIVE)
[2022-02-03] MEDS ORDERED: ZOFRAN ODT 4 MG PO ONE (14:02)
[2022-02-03] MEDS ORDERED: TORAdol 30 mg Injection IM ONE (14:02)
[2022-02-03] MEDS ORDERED: TORAdol 30 mg Injection ONE (14:05)
[2022-02-03] MEDS ORDERED: ZOFRAN ODT 4 MG ONE (14:05)
--- NOTE | 2022-02-03 14:11 | ERPHSYRPT ---
- History of Present Illness Time Seen by Provider: 02/03/22 12:39 Source: patient Exam Limitations: no limitations Patient Subjective Stated Complaint: cold sweats, fever, cough with brown sputum, sore throat, weakness/aching for a week but severity increased yesterday Triage Nursing Assessment: Patient ambulated back to ED. He is slightly short of breath with exertion but recovers quickly. No SOB noted at rest during assessment. No cough while in room for assessment. Patient is hoarse. Skin hot to touch. Patient is alert and oriented. Physician History: 46 years old male presented in the ER with chief complaint of flulike symptoms for 1 week. Patient report gradually worsening sore throat, mild to moderate dry cough congestion, body aches and yesterday started to have fever low-grade with chills. No difficulty breathing. Does have nausea but no vomiting. No abdominal pain. 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 Has home COVID test done couple of days ago and was negative. Timing/Duration: week(s) (1), gradual onset, worse Cough Quality/Degree: moderate, dry cough Possible Cause: illness exposure Modifying Factors: Worsens With: coughing Associated Symptoms: fever, chills, chest pain/soreness, cough, headache, muscle aches, nasal congestion, nasal drainage, sore throat, No shortness of breath Allergies/Adverse Reactions: doxycycline Allergy (Verified 02/03/22 13:04) Hives Reports "Hives" Home Medications: Aspirin 81 gm Chew [Baby Aspirin 81 mg Chew] 81 mg PO DAILY 11/30/14 [History] Venlafaxine HCl [Effexor Xr] 150 mg PO DAILY 11/30/14 [History] Amlodipine Besylate [Norvasc] 5 mg PO BID 02/08/20 [History] clonazePAM [Clonazepam] 1 mg PO BID 03/07/21 [History] Hx Tetanus, Diphtheria Vaccination/Date Given: Yes Hx Influenza Vaccination/Date Given: No Hx Pneumococcal Vaccination/Date Given: No Immunizations Up to Date: Yes Travel Risk - International Travel Have you traveled outside of the country in past 3 weeks: No - Coronavirus Screening Symptoms: Fever, Cough: New Onset, Headaches/Body Aches/Fatigue Close contact with a COVID-19 positive Pt in past 14-21 Days: No - Vaccine Status Have you recieved a Covid-19 vaccination: No - Review of Systems Constitutional: Fever, Chills, Fatigue, Weakness Eyes: No Symptoms Ears, Nose, & Throat: Nose Congestion, Throat Pain Respiratory: Cough Cardiac: No Symptoms Abdominal/Gastrointestinal: Nausea Genitourinary Symptoms: No Symptoms Musculoskeletal: Myalgias Neurological: Headache Psychological: No Symptoms Endocrine: No Symptoms Hematologic/Lymphatic: No Symptoms, Easy Bruising Immunological/Allergic: No Symptoms - Past Medical History Pertinent Past Medical History: Yes Neurological History: No Pertinent History ENT History: No Pertinent History Cardiac History: Hypertension Respiratory History: No Pertinent History Endocrine Medical History: No Pertinent History Musculoskeletal History: No Pertinent History GI Medical History: No Pertinent History History: No Pertinent History Psycho-Social History: Anxiety, Depression, Panic Disorder Male Reproductive Disorders: No Pertinent History - Past Surgical History Past Surgical History: No Neuro Surgical History: No Pertinent History Cardiac: No Pertinent History Respiratory: No Pertinent History Gastrointestinal: No Pertinent History Genitourinary: No Pertinent History Musculoskeletal: No Pertinent History Male Surgical History: No Pertinent History - Social History Smoking Status: Current every day smoker How long have you smoked: 24 year Exposure to second hand smoke: Yes Drug Use: none Patient Lives Alone: No Significant Family History: no pertinent family hx - Nursing Vital Signs Nursing Vital Signs: Initial Vital Signs Temperature 100.4 F 02/03/22 12:49 Pulse Rate 103 H 02/03/22 12:49 Respiratory Rate 22 02/03/22 12:49 Blood Pressure 128/73 02/03/22 12:49 O2 Sat by Pulse Oximetry 100 02/03/22 12:49 Pain Scale Pain Intensity 5 - Physical Exam General Appearance: no apparent distress, alert Eye Exam: PERRL/EOMI Ears, Nose, Throat Exam: TMs normal, pharyngeal erythema Neck Exam: normal inspection, non-tender, supple, full range of motion Respiratory Exam: normal breath sounds, lungs clear Cardiovascular Exam: regular rate/rhythm, normal heart sounds Gastrointestinal/Abdomen Exam: soft, normal bowel sounds, No tenderness Back Exam: normal inspection, normal range of motion Neurologic Exam: alert, oriented x 3, cooperative Skin Exam: normal color SpO2 Interpretation: normal SpO2: 100 O2 Delivery: Room Air Ordered Tests: Active Orders 24 hr Category Date Time Status UA W/RFX CULTURE Stat Lab 02/03/22 13:17 Completed Medication Summary Discontinued Medications Generic Name Dose Route Start Last Admin Trade Name Thaddeus PRN Reason Stop Dose Admin Ketorolac Tromethamine 30 mg 02/03/22 14:02 02/03/22 14:07 Ketorolac Tromethamine 30 Mg/Ml Inj IM 02/03/22 14:03 30 mg STAT ONE Administration Ketorolac Tromethamine Confirm 02/03/22 14:05 Ketorolac Tromethamine 30 Mg/Ml Inj Administered 02/03/22 14:06 Dose 30 mg .ROUTE .STK-MED ONE Ondansetron HCl 4 mg 02/03/22 14:02 02/03/22 14:06 Zofran 4 Mg/Udtablet Orally Disintegrating PO 02/03/22 14:03 4 mg STAT ONE Administration Ondansetron HCl Confirm 02/03/22 14:05 Zofran 4 Mg/Udtablet Orally Disintegrating Administered 02/03/22 14:06 Dose 4 mg .ROUTE .STK-MED ONE Lab/Rad Data: Laboratory Results 02/03/22 02/03/22 02/03/22 Range/Units 13:17 12:51 12:51 Urinalys Dipstick Clnc MAIN LAB Urine Color YELLOW (YELLOW) Urine Appearance CLEAR (CLEAR) Urine pH 6.5 (5-6) Ur Specific Holiday 1.025 (1.005-1.025) POC Urine Protein Conf NEGATIVE (Negative) Urine Ketones NEGATIVE (NEGATIVE) Urine Nitrite NEGATIVE (NEGATIVE) Urine Bilirubin NEGATIVE (NEGATIVE) Urine Urobilinogen 0.2 (0-1) mg/dL Urine Leukocytes NEGATIVE (NEGATIVE) Urine WBC (Auto) NONE (0-5) /HPF Urine RBC (Auto) NONE (0-2) /HPF U Hyaline Cast (Auto) 0-2 (0-2) /LPF U Epithel Cells (Auto) NONE (FEW) /HPF Urine Bacteria (Auto) NONE SEEN (NEGATIVE) /HPF Urine RBC NEGATIVE (0-5) Jeyson/ul Ur Culture Indicated? NO Urine Glucose NEGATIVE (NEGATIVE) mg/dL Influenza Type A Ag NEGATIVE (NEGATIVE) Influenza Type B Ag NEGATIVE (NEGATIVE) RSV (PCR) NEGATIVE (Negative) SARS-CoV-2 (PCR) POSITIVE A (NEGATIVE) Group A Strep Antibody NOT DETECTED (NEGATIVE) - Progress Progress: re-examined Air Movement: good Progress Note: 02/03/22 14:18 Patient is not in any distress, nontoxic appearance. Given Toradol and Zofran for symptomatic relief, negative flu RSV and strep but has a positive COVID. Lungs bilateral clear to auscultation, no difficulty breathing. Discussed with patient about Paxlovid, risk benefits and interactions with other medication, declined. Recommended supportive care and outpatient follow-up. Discussed signs symptoms of worsening needing return to ER which he seems understanding. Blood Culture(s) Obtained: No Antibiotics given: No Counseled pt/family regarding: lab results, diagnosis, need for follow-up - Departure Departure Disposition: Home Clinical Impression: COVID-19, Viral syndrome Condition: Stable Critical Care Time: No Referrals: AMAYA HILARIO [Primary Care Provider] - Follow up/PCP as directed (In 2 days for reevaluation) Instructions: Cough, Adult (DC), COVID-19 (DC) Additional Instructions: Take Tylenol/ibuprofen as needed for aches and pains/fever greater than 100.4, rotate every 4 hourly. Increase hydration. Take Zofran as needed. Follow-up with primary care for reevaluation. Return to ER if having difficulty breathing, intractable vomiting, persistent high-grade fever etc. Prescriptions: Ondansetron ODT 4 MG [Zofran Odt 4 mg] 1 ea PO QIDPRN PRN #7 tablet PRN Reason: n/v
[2022-02-03 14:22] VITALS: BP 126/70; PULSE 100
== END 2022-02-03 14:22 | disposition home or self-care (01) ==
LOC: ED 12:31
DX: U07.1 COVID-19 (principal); J02.9 Acute pharyngitis, unspecified; R05.1 Acute cough; R09.81 Nasal congestion; M79.10 Myalgia, unspecified site; R50.9 Fever, unspecified; R11.0 Nausea; I10 Essential (primary) hypertension; Z79.899 Other long term (current) drug therapy; Z28.310 Unvaccinated for COVID-19; Z72.0 Tobacco use
CPT/HCPCS: 0241U; 81015; 87651; 96372; 99283; J1885; Q0162

== ENCOUNTER 2022-02-17 17:23 | Emergency (ER) | payer SELFPAY ==
[2022-02-17] MEDS ORDERED: TORAdol 30 mg Injection IV ONE (17:39)
--- NOTE | 2022-02-17 17:43 | ERPHSYRPT ---
- History of Present Illness Time Seen by Provider: 02/17/22 17:26 Source: patient Exam Limitations: no limitations Patient Subjective Stated Complaint: PT HERE FOR PAIN TO NECK AND LEFT SHOULDER THAT RADIATES TO LEFT CHEST, PAIN FOR 2 DAYS NOW, GETTING WORSE, HAD COVID 2 WEEKS AGO Triage Nursing Assessment: PT ALERT, RESP EASY, FACE MASK IN PLACE, SKIN W/D/P. NO COUGH AT PRSENT Physician History: 46-year-old with history of hypertension presented in the ER with chief complaint of left shoulder pain for the last 2 days. Patient reports pain radiating with movements of shoulder from neck/shoulder and lateral left chest wall. Better with resting. No numbness or tingling in the left upper extremity. Denies any fall or trauma. Does not report having history of cervicalgia. Has limited range of motion of left shoulder and cannot raise above head. Denies any shortness of breath but does have cough for the last couple of weeks since he has COVID-19. Timing/Duration: day(s) (2), gradual onset, worse Severity: moderate Modifying Factors: Improves With: rest. Worsens With: movement Associated Symptoms: chest pain, No nausea, No vomiting, No abdominal pain, No shortness of breath, No heartburn, No diaphoresis, No chills, No fever, No headaches, No loss of appetite, No malaise, No syncope, No seizure, No weakness Allergies/Adverse Reactions: doxycycline Allergy (Verified 02/17/22 17:33) Hives Reports "Hives" Home Medications: Venlafaxine HCl [Effexor Xr] 150 mg PO DAILY 11/30/14 [History] clonazePAM [Clonazepam] 1 mg PO BID 03/07/21 [History] Metoprolol Succinate 50 mg PO DAILY 02/17/22 [History] Hx Tetanus, Diphtheria Vaccination/Date Given: Yes Hx Influenza Vaccination/Date Given: No Hx Pneumococcal Vaccination/Date Given: No Immunizations Up to Date: Yes Travel Risk - International Travel Have you traveled outside of the country in past 3 weeks: No - Coronavirus Screening Are you exhibiting any of the following symptoms?: Yes Symptoms: Cough: New Onset Close contact with a COVID-19 positive Pt in past 14-21 Days: Yes - Vaccine Status Have you recieved a Covid-19 vaccination: No - Review of Systems Constitutional: No Symptoms Eyes: No Symptoms Ears, Nose, & Throat: No Symptoms Respiratory: Cough Cardiac: Chest Pain Abdominal/Gastrointestinal: No Symptoms Genitourinary Symptoms: No Symptoms Musculoskeletal: Joint Pain Skin: No Symptoms Neurological: No Symptoms Psychological: No Symptoms Hematologic/Lymphatic: No Symptoms Immunological/Allergic: No Symptoms - Past Medical History Pertinent Past Medical History: Yes Neurological History: No Pertinent History ENT History: No Pertinent History Cardiac History: Hypertension Respiratory History: No Pertinent History Endocrine Medical History: No Pertinent History Musculoskeletal History: No Pertinent History GI Medical History: No Pertinent History History: No Pertinent History Psycho-Social History: Anxiety, Depression, Panic Disorder Male Reproductive Disorders: No Pertinent History - Past Surgical History Past Surgical History: No Neuro Surgical History: No Pertinent History Cardiac: No Pertinent History Respiratory: No Pertinent History Gastrointestinal: No Pertinent History Genitourinary: No Pertinent History Musculoskeletal: No Pertinent History Male Surgical History: No Pertinent History - Social History Smoking Status: Current every day smoker How long have you smoked: 24 year Exposure to second hand smoke: Yes Drug Use: none Patient Lives Alone: No Significant Family History: no pertinent family hx - Nursing Vital Signs Nursing Vital Signs: Initial Vital Signs Temperature 97.0 F 02/17/22 17:27 Pulse Rate 89 02/17/22 17:27 Respiratory Rate 18 02/17/22 17:27 Blood Pressure 131/85 02/17/22 17:27 O2 Sat by Pulse Oximetry 95 02/17/22 17:27 Pain Scale Pain Intensity 7 - Physical Exam General Appearance: no apparent distress, alert Eye Exam: PERRL/EOMI Ears, Nose, Throat Exam: normal ENT inspection, TMs normal, pharynx normal, moist mucous membranes Neck Exam: normal inspection, non-tender, supple, full range of motion Respiratory Exam: normal breath sounds, lungs clear, No chest tenderness Cardiovascular Exam: regular rate/rhythm, normal heart sounds Back Exam: normal inspection, normal range of motion Extremity Exam: normal inspection, No normal range of motion (Limited range of motion of left shoulder cannot raise above head. Reproducible pain/tenderness in the left shoulder/chest wall.) Neurologic Exam: alert, oriented x 3, cooperative Skin Exam: normal color SpO2 Interpretation: normal SpO2: 95 O2 Delivery: Room Air - Course EKG Interpreted by Me: RATE ([id number]), Sinus Rhythm, NORMAL AXIS, NORMAL INTERVALS, Non-specific ST Changes Ordered Tests: Active Orders 24 hr Category Date Time Status Flight Operation Coordinator STAT Care 02/17/22 17:39 Active EKG-ER Only STAT Care 02/17/22 17:38 Active IV Insertion STAT Care 02/17/22 17:38 Active CHEST 1 VIEW (PORTABLE) Stat Exams 02/17/22 17:38 Taken SHOULDER Stat Exams 02/17/22 17:39 Taken CBC W DIFF Stat Lab 02/17/22 18:25 Completed CK-Creatinine Phosphokinase Stat Lab 02/17/22 18:25 Completed CMP Stat Lab 02/17/22 18:25 Completed NT PRO BNP Stat Lab 02/17/22 18:25 Completed TROPONIN Q4H Lab 02/18/22 01:45 Ordered TROPONIN Q4H Lab 02/17/22 18:25 Completed TROPONIN Q4H Lab 02/17/22 21:45 Ordered Medication Summary Discontinued Medications Generic Name Dose Route Start Last Admin Trade Name Freq PRN Reason Stop Dose Admin Aspirin 324 mg 02/17/22 17:48 02/17/22 17:52 Aspirin 81 Mg Tab.Chew PO 02/17/22 17:49 324 mg STAT ONE Administration Aspirin Confirm 02/17/22 17:49 Aspirin 81 Mg Tab.Chew Administered 02/17/22 17:50 Dose 324 mg .ROUTE .STK-MED ONE Ketorolac Tromethamine 30 mg 02/17/22 17:39 02/17/22 17:48 Ketorolac Tromethamine 30 Mg/Ml Inj IV 02/17/22 17:40 Not Given STAT ONE Ketorolac Tromethamine 30 mg 02/17/22 17:48 02/17/22 17:51 Ketorolac Tromethamine 30 Mg/Ml Inj IM 02/17/22 17:49 30 mg STAT ONE Administration Ketorolac Tromethamine Confirm 02/17/22 17:49 Ketorolac Tromethamine 30 Mg/Ml Inj Administered 02/17/22 17:50 Dose 30 mg .ROUTE .STK-MED ONE Lab/Rad Data: Laboratory Result Diagrams 02/17/22 18:25 02/17/22 18:25 Laboratory Results 02/17/22 02/17/22 02/17/22 Range/Units 18:25 18:25 18:25 WBC 10.2 (4.0-10.5) x10^3/uL RBC 4.79 (4.1-5.6) x10^6/uL Hgb 13.9 (12.5-18.0) g/dL Hct 42.3 (42-50) % MCV 88.3 (78-100) fL MCH 29.0 (26-32) pg MCHC 32.9 (32-36) g/dL RDW 13.6 (11.5-14.0) % Plt Count 362 (150-450) x10^3/uL MPV 8.9 (7.5-11.0) fL Gran % 59.1 (36.0-66.0) % Immature Gran % (Auto) 0.3 (0.00-0.4) % Nucleat RBC Rel Count 0.0 (0.00-0.1) % Eos # (Auto) 0.14 (0-0.5) x10^3/uL Immature Gran # (Auto) 0.03 (0.00-0.03) x10^3u/L Absolute Lymphs (auto) 3.09 (1.0-4.6) x10^3/uL Absolute Monos (auto) 0.83 (0.0-1.3) x10^3/uL Absolute Nucleated RBC 0.00 (0.00-0.01) x10^3u/L Lymphocytes % 30.4 (24.0-44.0) % Monocytes % 8.2 (0.0-12.0) % Eosinophils % 1.4 (0.00-5.0) % Basophils % 0.6 (0.0-0.4) % Absolute Granulocytes 6.03 (1.4-6.9) x10^3/uL Basophils # 0.06 (0-0.4) x10^3/uL Sodium 138 (137-145) mmol/L Potassium 3.8 (3.5-5.1) mmol/L Chloride 106 (98-107) mmol/L Carbon Dioxide 26 (22-30) mmol/L Anion Gap 9.8 (5-15) MEQ/L BUN 11 (9-20) mg/dL Creatinine 0.69 (0.66-1.25) mg/dL Estimated GFR > 60.0 ML/MIN Glucose 126 H (74-106) mg/dL Calcium 8.7 (8.4-10.2) mg/dL Total Bilirubin 0.40 (0.2-1.3) mg/dL AST 29 (17-59) U/L ALT 29 (0-50) U/L Alkaline Phosphatase 64 (38-126) U/L Creatine Kinase 238 H (55-170) U/L Troponin I < 0.012 (0.000-0.034) ng/mL NT-Pro-B Natriuret Pep 66.0 (0-450) pg/mL Serum Total Protein 7.3 (6.3-8.2) g/dL Albumin 4.1 (3.5-5.0) g/dL - Progress Progress: improved Progress Note: 02/17/22 19:38 26-year-old is evaluated for shoulder pain with some radiation to left lateral chest wall and up in the neck with movements of shoulder it is reproducible. Lungs clear to auscultation otherwise. Obtained x-rays which are negative for any acute findings reviewed by me and both x-ray shoulder and chest, official report is pending. EKG showed sinus rhythm. Negative troponins. With his pain going on for the last couple of days, do not think needs second troponin, has low heart score. Recommended outpatient follow-up with primary care and Ortho for reevaluation. Recommended taking ibuprofen and avoiding exertion. Discussed signs symptoms of worsening needing return to ER which he seems understanding. Stable for discharge. Counseled pt/family regarding: lab results, diagnosis, need for follow-up, rad results - Departure Departure Disposition: Home Clinical Impression: Left shoulder strain Condition: Stable Critical Care Time: No Referrals: AMAYA HILARIO [Primary Care Provider] - Follow up/PCP as directed (In 2 days for reevaluation) ORTHO - LAXMI CARMONA NP [NON-STAFF PHY W/O PRIVILEGES] - Follow up/PCP as directed (In 2 days for reevaluation) Instructions: Shoulder Tendinopathy (DC), Shoulder Sprain (DC) Additional Instructions: Avoid exertional activities. Follow-up with primary care and Ortho for reevaluation. Return to ER for worsening pain or if having chest pain, difficulty breathing etc.
[2022-02-17] MEDS ORDERED: BABY ASPIRIN 81 MG CHEW PO ONE (17:48)
[2022-02-17] MEDS ORDERED: TORAdol 30 mg Injection IM ONE (17:48)
[2022-02-17] MEDS ORDERED: BABY ASPIRIN 81 MG CHEW ONE (17:49)
[2022-02-17] MEDS ORDERED: TORAdol 30 mg Injection ONE (17:49)
[2022-02-17 18:29] LABS: Absolute Neutrophil Ct (ANC) 6.03 x10^3/uL (1.4-6.9); Basophil (Absolute #) 0.06 x10^3/uL (0-0.4); Eosinophil % 1.4 % (0.00-5.0); Eosinophil (Absolute #) 0.14 x10^3/uL (0-0.5); Hematocrit 42.3 % (42-50); Hemoglobin 13.9 g/dL (12.5-18.0); Lymphocyte (Absolute #) 3.09 x10^3/uL (1.0-4.6); Lymphocytes % 30.4 % (24.0-44.0); Mean Cell Volume 88.3 fL (78-100); Mean Corpuscular Hgb Concent. 32.9 g/dL (32-36); Mean Platelet Volume 8.9 fL (7.5-11.0); Monocyte (Absolute #) 0.83 x10^3/uL (0.0-1.3); Monocytes % 8.2 % (0.0-12.0); Neutrophil % 59.1 % (36.0-66.0); Platelet Count 362 x10^3/uL (150-450); Red Blood Count 4.79 x10^6/uL (4.1-5.6); Red Cell Distribution Width 13.6 % (11.5-14.0); White Blood Count 10.2 x10^3/uL (4.0-10.5)
[2022-02-17 18:44] VITALS: PULSE 75
[2022-02-17 18:59] LABS: ALBUMIN 4.1 g/dL (3.5-5.0); ALKALINE PHOSPHATASE 64 U/L (38-126); ANION GAP 9.8 MEQ/L (5-15); BLOOD UREA NITROGEN 11 mg/dL (9-20); CHLORIDE 106 mmol/L (98-107); CK-Creatinine Phosphokinase 238 U/L (55-170); Calcium 8.7 mg/dL (8.4-10.2); Carbon Dioxide 26 mmol/L (22-30); Creatinine 1 0.69 mg/dL (0.66-1.25); EST GLOMERULAR FILTRATION RATE > 60.0 ML/MIN; Glucose 126 mg/dL (74-106); Potassium 3.8 mmol/L (3.5-5.1); SGOT/AST 29 U/L (17-59); SGPT/ALT 29 U/L (0-50); SODIUM 138 mmol/L (137-145); Total Protein 7.3 g/dL (6.3-8.2)
[2022-02-17 19:40] VITALS: O2SAT 95
[2022-02-17 19:45] VITALS: BP 115/70
--- NOTE | 2022-02-17 20:36 | XRAY ---
Indication: Left chest pain. Comparison: March 07, 2021 Portable chest again demonstrates normal heart and lungs. Bony thorax intact. No new/acute findings.
--- NOTE | 2022-02-17 20:37 | XRAY ---
Indication: Pain. No known injury. Comparison: None 3 view left shoulder obtained. No bony, articular, or soft tissue abnormalities.
== END 2022-02-17 19:46 | disposition home or self-care (01) ==
LOC: ED 17:23
DX: S46.912A Strain of unspecified muscle, fascia and tendon at shoulder and upper arm level, left arm, initial encounter (principal); R05.9 Cough, unspecified; I10 Essential (primary) hypertension; Z79.899 Other long term (current) drug therapy; Z28.310 Unvaccinated for COVID-19; Z86.16 Personal history of COVID-19; Z72.0 Tobacco use
CPT/HCPCS: 36415; 71045; 73030; 80053; 82550; 83880; 84484; 85025; 93005; 93041; 96372; 99284; J1885; A9270-GY

== ENCOUNTER 2023-02-01 11:18 | Emergency (ER) | payer SELFPAY ==
[2023-02-01 11:42] VITALS: TEMP 96.8
[2023-02-01 11:43] VITALS: RESP 20
[2023-02-01 11:57] LABS: Absolute Neutrophil Ct (ANC) 6.07 x10^3/uL (1.4-6.9); BASOPHIL % 0.4 % (0.0-0.4); Basophil (Absolute #) 0.04 x10^3/uL (0-0.4); Eosinophil % 0.9 % (0.00-5.0); Eosinophil (Absolute #) 0.09 x10^3/uL (0-0.5); Hematocrit 43.5 % (42-50); Hemoglobin 14.3 g/dL (12.5-18.0); IMMATURE GRAN # 0.02 x10^3u/L (0.00-0.03); IMMATURE GRAN % 0.2 % (0.00-0.4); Lymphocyte (Absolute #) 3.15 x10^3/uL (1.0-4.6); Lymphocytes % 31.3 % (24.0-44.0); Mean Cell Volume 88.8 fL (78-100); Mean Corpuscular Hemoglobin 29.2 pg (26-32); Mean Corpuscular Hgb Concent. 32.9 g/dL (32-36); Mean Platelet Volume 8.5 fL (7.5-11.0); Monocyte (Absolute #) 0.69 x10^3/uL (0.0-1.3); Monocytes % 6.9 % (0.0-12.0); Neutrophil % 60.3 % (36.0-66.0); Platelet Count 315 x10^3/uL (150-450); Red Cell Distribution Width 13.8 % (11.5-14.0); White Blood Count 10.1 x10^3/uL (4.0-10.5)
--- NOTE | 2023-02-01 12:00 | ERPHSYRPT ---
- History of Present Illness Source: patient Exam Limitations: no limitations Patient Subjective Stated Complaint: pt here for cough, fever at night for approx 6 weeks now, has been on steriods, and is now on abtibotics, Triage Nursing Assessment: pt alert, resp easy,dry cough.skin w/d/p. moves all ext well, Physician History: 47 yo WM w cough x 2 months. He has had a subjective fever at night. Pt smokes 1ppd. He has had some chest "tightness". N/V/D/melena/hematochezia are denied. He has been treated w a Z-karo/Medrol dose karo/Doxycycline per his sister who is an [employer]IGHT [employer]. Pt has a h/o HTN. he has some dyspnea upon exertion. Timing/Duration: other (2 months) Cough Quality/Degree: dry cough Possible Cause: no prior episodes Associated Symptoms: fever, shortness of breath Allergies/Adverse Reactions: No Known Drug Allergies Allergy (Unverified 02/01/23 11:26) Home Medications: Venlafaxine HCl [Effexor Xr] 150 mg PO DAILY 11/30/14 [History] clonazePAM [Clonazepam] 1 mg PO BID 03/07/21 [History] Metoprolol Succinate 50 mg PO DAILY 02/17/22 [History] Doxycycline Hyclate [Vibramycin] 100 mg PO BID 02/01/23 [History] Tamsulosin HCl 0.4 mg [Flomax 0.4 MG] 0.4 mg PO DAILY 02/01/23 [History] hydroCHLOROthiazide [Hydrochlorothiazide] 12.5 mg PO DAILY 02/01/23 [History] Hx Tetanus, Diphtheria Vaccination/Date Given: Yes Hx Influenza Vaccination/Date Given: No Hx Pneumococcal Vaccination/Date Given: No Immunizations Up to Date: Yes Travel Risk - International Travel Have you traveled outside of the country in past 3 weeks: No - Coronavirus Screening Are you exhibiting any of the following symptoms?: Yes Symptoms: Fever, Cough: New Onset, Shortness of Breath - Vaccine Status Have you recieved a Covid-19 vaccination: No - Review of Systems Constitutional: Fever Eyes: No Symptoms Ears, Nose, & Throat: No Symptoms Respiratory: No Symptoms, Cough, Dyspnea Cardiac: No Symptoms, Other (Chest tightness) Abdominal/Gastrointestinal: No Symptoms Genitourinary Symptoms: No Symptoms Musculoskeletal: No Symptoms Skin: No Symptoms Neurological: No Symptoms Psychological: No Symptoms Endocrine: No Symptoms Hematologic/Lymphatic: No Symptoms Immunological/Allergic: No Symptoms - Past Medical History Pertinent Past Medical History: No Neurological History: No Pertinent History ENT History: No Pertinent History Cardiac History: Hypertension Respiratory History: No Pertinent History Endocrine Medical History: No Pertinent History Musculoskeletal History: No Pertinent History GI Medical History: No Pertinent History History: No Pertinent History Psycho-Social History: Anxiety, Depression, Panic Disorder Male Reproductive Disorders: No Pertinent History - Past Surgical History Past Surgical History: No Neuro Surgical History: No Pertinent History Cardiac: No Pertinent History Respiratory: No Pertinent History Gastrointestinal: No Pertinent History Genitourinary: No Pertinent History Musculoskeletal: No Pertinent History Male Surgical History: No Pertinent History - Social History Smoking Status: Current every day smoker How long have you smoked: 24 year Exposure to second hand smoke: Yes Drug Use: none Patient Lives Alone: No Significant Family History: no pertinent family hx - Nursing Vital Signs Nursing Vital Signs: Initial Vital Signs Blood Pressure 146/82 02/01/23 11:30 Pain Scale Pain Intensity 2 Mildly hypertensive - Physical Exam General Appearance: no apparent distress Eye Exam: PERRL/EOMI, eyes nml inspection Ears, Nose, Throat Exam: normal ENT inspection, TMs normal, pharynx normal, moist mucous membranes, tonsillar exudate Neck Exam: normal inspection, non-tender, supple, No meningismus, No mass, No Brudzinski, No Kernig's Respiratory Exam: airway intact, other (Occasional wheeze bilaterally), No respiratory distress Cardiovascular Exam: regular rate/rhythm, normal heart sounds, normal peripheral pulses, capillary refill <2 sec, No murmur Gastrointestinal/Abdomen Exam: soft, normal bowel sounds, No tenderness Back Exam: normal inspection, normal range of motion, No CVA tenderness, No vertebral tenderness Extremity Exam: normal inspection, normal range of motion Neurologic Exam: alert, oriented x 3, cooperative, 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, normal mood/affect, nml cerebellar function, nml station & gait, sensation nml, No motor deficits, No sensory deficit Skin Exam: normal color, warm, dry, No rash Lymphatic Exam: No adenopathy SpO2 Interpretation: normal SpO2: 98 O2 Delivery: Room Air - Course EKG Interpreted by Me: RATE (Normal sinus rhythm/rate 76/normal QT-QTc/normal limit T waves/no acute ST segment changes.) - Radiology Exams Chest X-ray Interpretation: Reviewed by me (Left midlung atelectasis/scarring otherwis e negative) - CT Exams Chest CT Interpretation: Discussed w/radiologist (Left lung atelectasis/scarring/calcified granuloma/fatty liver otherwise negative) Ordered Tests: Active Orders 24 hr Category Date Time Status EKG-ER Only STAT Care 02/01/23 11:38 Completed CHEST 1 VIEW (PORTABLE) Stat Exams 02/01/23 12:01 Completed CHEST WITHOUT CONTRAST [CT] Stat Exams 02/01/23 13:05 Completed CBC W DIFF Stat Lab 02/01/23 11:38 Completed CMP Stat Lab 02/01/23 11:50 Completed D-DIMER QUANTITATIVE Stat Lab 02/01/23 11:50 Completed NT PRO BNPII Stat Lab 02/01/23 11:50 Completed TROPONIN Q4H Lab 02/01/23 11:50 Completed TROPONIN Q4H Lab 02/01/23 15:45 Ordered TROPONIN Q4H Lab 02/01/23 19:45 Ordered Medication Summary Discontinued Medications Generic Name Dose Route Start Last Admin Trade Name Freq PRN Reason Stop Dose Admin Methylprednisolone Sodium 0 mg 02/01/23 14:14 02/01/23 14:18 Succinate 125 mg/ Sterile IM 02/01/23 14:15 125 mg Water 2 ml STAT ONE Administration Methylprednisolone Sodium Succinate Confirm 02/01/23 14:16 Methylprednis Sod Succ 125 Mg/2 Ml Vial Administered 02/01/23 14:17 Dose 125 mg .ROUTE .STK-MED ONE Sterile Water Confirm 02/01/23 14:16 Water For Injection,Sterile 10 Ml Vial Administered 02/01/23 14:17 Dose 10 ml IJ .STK-MED ONE Lab/Rad Data: Laboratory Result Diagrams 02/01/23 11:38 02/01/23 11:50 Laboratory Results 02/01/23 02/01/23 02/01/23 Range/Units 11:50 11:50 11:50 WBC (4.0-10.5) x10^3/uL RBC (4.1-5.6) x10^6/uL Hgb (12.5-18.0) g/dL Hct (42-50) % MCV (78-100) fL MCH (26-32) pg MCHC (32-36) g/dL RDW (11.5-14.0) % Plt Count (150-450) x10^3/uL MPV (7.5-11.0) fL Gran % (36.0-66.0) % Immature Gran % (Auto) (0.00-0.4) % Nucleat RBC Rel Count (0.00-0.1) % Eos # (Auto) (0-0.5) x10^3/uL Immature Gran # (Auto) (0.00-0.03) x10^3u/L Absolute Lymphs (auto) (1.0-4.6) x10^3/uL Absolute Monos (auto) (0.0-1.3) x10^3/uL Absolute Nucleated RBC (0.00-0.01) x10^3u/L Lymphocytes % (24.0-44.0) % Monocytes % (0.0-12.0) % Eosinophils % (0.00-5.0) % Basophils % (0.0-0.4) % Absolute Granulocytes (1.4-6.9) x10^3/uL Basophils # (0-0.4) x10^3/uL D-Dimer 0.23 (0.0-0.50) mg/L Sodium (137-145) mmol/L Potassium (3.5-5.1) mmol/L Chloride (98-107) mmol/L Carbon Dioxide (22-30) mmol/L Anion Gap (5-15) MEQ/L BUN (9-20) mg/dL Creatinine (0.66-1.25) mg/dL Estimated GFR ML/MIN Glucose (74-106) mg/dL Calcium (8.4-10.2) mg/dL Total Bilirubin (0.2-1.3) mg/dL AST (17-59) U/L ALT (0-50) U/L Alkaline Phosphatase (38-126) U/L Troponin I < 0.012 (0.000-0.034) ng/mL NT-Pro-B Natriuret Pep (<300) pg/mL Serum Total Protein (6.3-8.2) g/dL Albumin (3.5-5.0) g/dL Influenza Type A Ag NEGATIVE (NEGATIVE) Influenza Type B Ag NEGATIVE (NEGATIVE) RSV (PCR) NEGATIVE (NEGATIVE) SARS-CoV-2 (PCR) NEGATIVE (NEGATIVE) 02/01/23 02/01/23 Range/Units 11:50 11:38 WBC 10.1 (4.0-10.5) x10^3/uL RBC 4.90 (4.1-5.6) x10^6/uL Hgb 14.3 (12.5-18.0) g/dL Hct 43.5 (42-50) % MCV 88.8 (78-100) fL MCH 29.2 (26-32) pg MCHC 32.9 (32-36) g/dL RDW 13.8 (11.5-14.0) % Plt Count 315 (150-450) x10^3/uL MPV 8.5 (7.5-11.0) fL Gran % 60.3 (36.0-66.0) % Immature Gran % (Auto) 0.2 (0.00-0.4) % Nucleat RBC Rel Count 0.0 (0.00-0.1) % Eos # (Auto) 0.09 (0-0.5) x10^3/uL Immature Gran # (Auto) 0.02 (0.00-0.03) x10^3u/L Absolute Lymphs (auto) 3.15 (1.0-4.6) x10^3/uL Absolute Monos (auto) 0.69 (0.0-1.3) x10^3/uL Absolute Nucleated RBC 0.00 (0.00-0.01) x10^3u/L Lymphocytes % 31.3 (24.0-44.0) % Monocytes % 6.9 (0.0-12.0) % Eosinophils % 0.9 (0.00-5.0) % Basophils % 0.4 (0.0-0.4) % Absolute Granulocytes 6.07 (1.4-6.9) x10^3/uL Basophils # 0.04 (0-0.4) x10^3/uL D-Dimer (0.0-0.50) mg/L Sodium 136 L (137-145) mmol/L Potassium 3.9 (3.5-5.1) mmol/L Chloride 103 (98-107) mmol/L Carbon Dioxide 22 (22-30) mmol/L Anion Gap 14.2 (5-15) MEQ/L BUN 8 L (9-20) mg/dL Creatinine 0.83 (0.66-1.25) mg/dL Estimated GFR 110.0 ML/MIN Glucose 132 H (74-106) mg/dL Calcium 9.1 (8.4-10.2) mg/dL Total Bilirubin 0.70 (0.2-1.3) mg/dL AST 32 (17-59) U/L ALT 28 (0-50) U/L Alkaline Phosphatase 50 (38-126) U/L Troponin I (0.000-0.034) ng/mL NT-Pro-B Natriuret Pep 25.6 (<300) pg/mL Serum Total Protein 8.3 H (6.3-8.2) g/dL Albumin 4.4 (3.5-5.0) g/dL Influenza Type A Ag (NEGATIVE) Influenza Type B Ag (NEGATIVE) RSV (PCR) (NEGATIVE) SARS-CoV-2 (PCR) (NEGATIVE) - Progress Progress Note: 02/01/23 15:20 Nursing note and vital signs reviewed. No food or housing insecurities noted. All lab results reviewed and shared with patient. Chest x-ray result reviewed and shared with patient. CT result reviewed and shared with patient. 02/01/23 15:20 Patient most likely has chronic bronchitis due to his smoking. No evidence of pneumonia on his chest x-ray or CT. D-dimer is negative so most likely he does not have a PE. Troponin is negative and EKG is without acute changes. 125 mg IM Solu-Medrol given to patient. Patient to continue his doxycycline and to's start prednisone 10 mg p.o. twice daily for 5 days. A Flovent inhaler was also prescribed and patient was told to perform 2 puffs p.o. twice daily. Patient also advised to continue his albuterol inhaler 2 puffs every 4 hours as needed. He was advised to follow-up with his PCP and if became acutely short of breath, he was advised to use his albuterol inhaler or not the Flovent inhaler. Patient also advised to discontinue smoking, as he most likely developing early COPD. Patient discharged in stable condition. Counseled pt/family regarding: lab results, diagnosis, rad results Medical Desision Making - Diagnostic Testing Diagnostic test were ordered, analyzed, and reviewed by me: Yes Radiological Interpretation: Reviewed by me - Risk of complications The pt has a mod risk of morbidity or mortality based on: Need for prescription drug management - Departure Departure Disposition: Home Clinical Impression: Bronchitis Condition: Stable Critical Care Time: No Referrals: AMAYA HILARIO [Primary Care Provider] - Follow up/PCP as directed Instructions: Chronic Bronchitis (DC), Cough, Adult (DC) Additional Instructions: Continue with doxycycline Prednisone 1 tablet twice a day for 5 days. Flovent 2 puffs twice a day. Albuterol 2 puffs every 4 hours. Quit smoking. If you become acutely short of breath, use albuterol and not Flovent. Return to ER for increasing shortness of breath or temperature greater 100.5. Prescriptions: Prednisone 10 mg [Deltasone 10 mg] 10 mg PO BID 5 Days #10 tab Fluticasone Propionate [Flovent Hfa] 2 puffs IH BID #1 inhaler
--- NOTE | 2023-02-01 12:11 | XRAY ---
Indication: Cough and congestion for weeks. Comparison: February 17, 2022 Portable chest demonstrates new left midlung discoid atelectasis/scarring. Remaining heart and lungs are unremarkable. Bony thorax intact.
[2023-02-01 12:19] LABS: ALBUMIN 4.4 g/dL (3.5-5.0); ANION GAP 14.2 MEQ/L (5-15); BILIRUBIN,TOTAL 0.7 mg/dL (0.2-1.3); Calcium 9.1 mg/dL (8.4-10.2); Creatinine 1 0.83 mg/dL (0.66-1.25); NT PRO BNPII 25.6 pg/mL (<300); Potassium 3.9 mmol/L (3.5-5.1); Total Protein 8.3 g/dL (6.3-8.2)
[2023-02-01 12:32] VITALS: BP 145/101; PULSE 86
[2023-02-01 12:37] LABS: INFLUENZA A NEGATIVE (NEGATIVE); INFLUENZA B NEGATIVE (NEGATIVE); RESPIRATORY SYNCTIAL VIRUS NEGATIVE (NEGATIVE); SARS-CoV-2 Xpert Express NEGATIVE (NEGATIVE)
[2023-02-01 13:06] VITALS: O2SAT 98
--- NOTE | 2023-02-01 13:51 | XRAY ---
Indication: Fever and cough thousand 3 days. Multiple contiguous axial images obtained through the chest without contrast. Comparison: None Lungs demonstrates mild left mid lung discoid atelectasis/scarring and tiny left upper lobe calcified granuloma. No suspicious pulmonary mass/nodule, infiltrate, effusion, or pneumothorax. Heart not enlarged. Aorta is normal in course and caliber. No pathologic mediastinal lymphadenopathy. Bony thorax intact with minimal degenerative changes. Limited upper abdomen demonstrates fatty liver. Impression: Left lung atelectasis/scarring and calcified granuloma. Incidental fatty liver. Remaining CT chest without contrast exam is normal.
[2023-02-01] MEDS ORDERED: solu-MEDROL 125 MG, Sterile H2O 10 ml 2 ML IM ONE ×2 (14:14)
[2023-02-01] MEDS ORDERED: solu-MEDROL ONE (14:16)
[2023-02-01] MEDS ORDERED: Sterile H2O 10 ml IJ ONE (14:16)
== END 2023-02-01 14:33 | disposition home or self-care (01) ==
LOC: ED 11:18
DX: J40 Bronchitis, not specified as acute or chronic (principal); R05.3 Chronic cough; R07.9 Chest pain, unspecified; I10 Essential (primary) hypertension; Z79.52 Long term (current) use of systemic steroids; Z79.899 Other long term (current) drug therapy; Z28.310 Unvaccinated for COVID-19; Z72.0 Tobacco use
CPT/HCPCS: 0241U; 36415; 71045; 71250; 80053; 83880; 84484; 85025; 85379; 93005; 96372; 99284; J2930

== ENCOUNTER 2023-02-09 12:04 | Emergency (ER) | payer SELFPAY ==
[2023-02-09 12:28] VITALS: RESP 18; TEMP 99.2
[2023-02-09] MEDS ORDERED: TYLENOL 325 MG PO STA (12:30)
[2023-02-09] MEDS ORDERED: Sodium Chloride 0.9% 1000 ML 1,000 ML IV STA (12:30)
[2023-02-09] MEDS ORDERED: MOTRIN 600 MG PO STA (12:30)
--- NOTE | 2023-02-09 12:36 | ERPHSYRPT ---
- History of Present Illness Time Seen by Provider: 02/09/23 12:34 Patient Subjective Stated Complaint: Pt reports he has been sick for approx one month and has been seen in the ED previously. He has taken two zpacks, doxyc ycline, and has one dose left to take tomorrow for prednisone. Pt states he feels he has gotten worse with increased shortness of breath with exertion, started running a fever today of 102.5, has cough, congestion, sore throat, headache, bodyache, and is having "lung spasms" in back. Triage Nursing Assessment: Pt alert and oriented x3. Respirations easy/nonlabored. Skin w/p/d. Ambulated to ED cot without difficulty. Rates pain 4/10 when he has what he calls "lung spasms". Lungs clear posteriorly and anteriorly. Physician History: Pt reports he has been sick for approx one month and has been seen in the ED previously. He has taken two zpacks, doxycycline, and has one dose left to take tomorrow for prednisone. Pt states he feels he has gotten worse with increased shortness of breath with exertion, started running a fever today of 102.5, has cough, congestion, sore throat, headache, bodyache, and is having "lung spasms" in back. Felling very weak, Timing/Duration: week(s) Cough Quality/Degree: dry cough Associated Symptoms: fever, chills, chest pain/soreness, cough, dizziness, muscle aches, sore throat Allergies/Adverse Reactions: No Known Drug Allergies Allergy (Unverified 02/09/23 12:14) Home Medications: Venlafaxine HCl [Effexor Xr] 150 mg PO DAILY 11/30/14 [History] clonazePAM [Clonazepam] 2 mg PO BID PRN 03/07/21 [History] Metoprolol Succinate 50 mg PO DAILY 02/17/22 [History] Tamsulosin HCl 0.4 mg [Flomax 0.4 MG] 0.4 mg PO DAILY 02/01/23 [History] hydroCHLOROthiazide [Hydrochlorothiazide] 12.5 mg PO DAILY 02/01/23 [History] Hx Tetanus, Diphtheria Vaccination/Date Given: Yes Hx Influenza Vaccination/Date Given: No Hx Pneumococcal Vaccination/Date Given: No Travel Risk - International Travel Have you traveled outside of the country in past 3 weeks: No - Coronavirus Screening Are you exhibiting any of the following symptoms?: Yes Symptoms: Fever, Cough: New Onset, Shortness of Breath, Headaches/Body Aches/Fatigue Close contact with a COVID-19 positive Pt in past 14-21 Days: Yes - Vaccine Status Have you recieved a Covid-19 vaccination: No - Review of Systems Constitutional: Fever, Chills, Malaise, Weakness Eyes: No Symptoms Ears, Nose, & Throat: No Symptoms Respiratory: Cough, No Dyspnea Cardiac: No Chest Pain, No Edema, No Syncope Abdominal/Gastrointestinal: No Abdominal Pain, No Nausea, No Vomiting, No Diarrhea Genitourinary Symptoms: No Dysuria Musculoskeletal: No Back Pain, No Neck Pain Skin: No Rash Neurological: No Dizziness, No Focal Weakness, No Sensory Changes Psychological: No Symptoms Endocrine: No Symptoms All Other Systems: Reviewed and Negative - Past Medical History Pertinent Past Medical History: No Neurological History: No Pertinent History ENT History: No Pertinent History Cardiac History: Hypertension Respiratory History: No Pertinent History Endocrine Medical History: No Pertinent History Musculoskeletal History: No Pertinent History GI Medical History: No Pertinent History History: No Pertinent History Psycho-Social History: Anxiety, Depression, Panic Disorder Male Reproductive Disorders: No Pertinent History - Past Surgical History Past Surgical History: No Neuro Surgical History: No Pertinent History Cardiac: No Pertinent History Respiratory: No Pertinent History Gastrointestinal: No Pertinent History Genitourinary: No Pertinent History Musculoskeletal: No Pertinent History Male Surgical History: No Pertinent History - Social History Smoking Status: Current every day smoker How long have you smoked: 24 year Exposure to second hand smoke: Yes Drug Use: none Patient Lives Alone: No Significant Family History: no pertinent family hx - Nursing Vital Signs Nursing Vital Signs: Initial Vital Signs Temperature 99.2 F 02/09/23 12:14 Pulse Rate 102 H 02/09/23 12:14 Respiratory Rate 18 02/09/23 12:14 Blood Pressure 154/80 02/09/23 12:14 O2 Sat by Pulse Oximetry 96 02/09/23 12:14 Pain Scale Pain Intensity 4 - Physical Exam General Appearance: mild distress, alert Eye Exam: PERRL/EOMI, eyes nml inspection Ears, Nose, Throat Exam: normal ENT inspection, TMs normal, pharynx normal, moist mucous membranes Neck Exam: normal inspection, non-tender, supple, full range of motion Respiratory Exam: normal breath sounds, lungs clear, No respiratory distress Cardiovascular Exam: regular rate/rhythm, normal heart sounds Gastrointestinal/Abdomen Exam: soft, No tenderness Back Exam: normal inspection, No CVA tenderness, No vertebral tenderness Extremity Exam: normal inspection, normal range of motion Neurologic Exam: alert, oriented x 3, cooperative, normal mood/affect, sensation nml, No motor deficits Skin Exam: normal color, warm, dry, No rash Lymphatic Exam: No adenopathy SpO2: 96 - Course Nursing assessment & vital signs reviewed: Yes - Radiology Exams Chest X-ray Interpretation: Reviewed by me, Infiltrates (perihilar infiltrates) Ordered Tests: Active Orders 24 hr Category Date Time Status CHEST 2 VIEWS (PA AND LAT) Stat Exams 02/09/23 12:31 Taken BLOOD CULTURE Stat Lab 02/09/23 12:50 Received CBC W DIFF Stat Lab 02/09/23 12:40 Completed CMP Stat Lab 02/09/23 12:40 Completed UA W/RFX UR CULTURE Stat Lab 02/09/23 12:30 Ordered Respiratory Therapy Assessment DAILY RT 02/09/23 13:45 Active Medication Summary Generic Name Dose Route Start Last Admin Trade Name Freq PRN Reason Stop Dose Admin Ceftriaxone Sodium/Dextrose 1 g in 50 mls @ 100 mls/hr 02/09/23 13:21 01/19 05/10 13:33 Rocephin 1 Gm-D5w 50 Ml Bag IV 02/09/23 13:50 100 ml/hr STAT STA 100 mls/hr Administration Discontinued Medications Generic Name Dose Route Start Last Admin Trade Name Freq PRN Reason Stop Dose Admin Acetaminophen 975 mg 02/09/23 12:30 02/09/23 13:20 Acetaminophen 325 Mg Tablet PO 02/09/23 12:31 975 mg STAT STA Administration Acetaminophen Confirm 02/09/23 13:17 Acetaminophen 325 Mg Tablet Administered 02/09/23 13:18 Dose 975 mg .ROUTE .STK-MED ONE Budesonide 0.5 mg 02/09/23 13:23 02/09/23 13:41 Budesonide 0.5 Mg/2 Ml Ampul.Neb. IH 02/09/23 13:24 0.5 mg ONCE ONE Administration Methylprednisolone Sodium 0 mg 02/09/23 13:21 02/09/23 13:30 Succinate 125 mg/ Sterile IV 02/09/23 13:22 125 mg Water 2 ml STAT ONE Administration Sodium Chloride 1,000 mls @ 999 mls/hr 02/09/23 12:30 02/09/23 13:21 Sodium Chloride 0.9% 1000 Ml IV 02/09/23 13:30 999 mls/hr .Q1H1M STA Administration Sodium Chloride Confirm 02/09/23 13:17 Sodium Chloride 0.9% 1000 Ml Administered 02/09/23 13:18 Dose 1,000 mls @ ud .ROUTE .STK-MED ONE Ceftriaxone Sodium/Dextrose Confirm 02/09/23 13:28 Rocephin 1 Gm-D5w 50 Ml Bag Administered 02/09/23 13:29 Dose 1 g in 50 mls @ ud IV .STK-MED ONE Ibuprofen 600 mg 02/09/23 12:30 02/09/23 13:19 Ibuprofen 600 Mg Tablet PO 02/09/23 12:31 600 mg STAT STA Administration Ibuprofen Confirm 02/09/23 13:17 Ibuprofen 600 Mg Tablet Administered 02/09/23 13:18 Dose 600 mg .ROUTE .STK-MED ONE Methylprednisolone Sodium Succinate Confirm 02/09/23 13:27 Methylprednis Sod Succ 125 Mg/2 Ml Vial Administered 02/09/23 13:28 Dose 125 mg .ROUTE .STK-MED ONE Oseltamivir Phosphate 75 mg 02/09/23 13:48 Oseltamivir 75 Mg Cap PO 02/09/23 13:49 STAT ONE Sterile Water Confirm 02/09/23 13:27 Water For Injection,Sterile 10 Ml Vial Administered 02/09/23 13:28 Dose 10 ml IJ .STK-MED ONE Lab/Rad Data: Laboratory Result Diagrams 02/09/23 12:40 02/09/23 12:40 Laboratory Results 02/09/23 02/09/23 02/09/23 Range/Units 12:40 12:40 12:40 WBC 10.8 H (4.0-10.5) x10^3/uL RBC 4.81 (4.1-5.6) x10^6/uL Hgb 14.1 (12.5-18.0) g/dL Hct 42.6 (42-50) % MCV 88.6 (78-100) fL MCH 29.3 (26-32) pg MCHC 33.1 (32-36) g/dL RDW 14.1 H (11.5-14.0) % Plt Count 315 (150-450) x10^3/uL MPV 8.7 (7.5-11.0) fL Gran % 68.1 H (36.0-66.0) % Immature Gran % (Auto) 0.5 H (0.00-0.4) % Nucleat RBC Rel Count 0.0 (0.00-0.1) % Eos # (Auto) 0.10 (0-0.5) x10^3/uL Immature Gran # (Auto) 0.05 H (0.00-0.03) x10^3u/L Absolute Lymphs (auto) 2.16 (1.0-4.6) x10^3/uL Absolute Monos (auto) 1.06 (0.0-1.3) x10^3/uL Absolute Nucleated RBC 0.00 (0.00-0.01) x10^3u/L Lymphocytes % 20.1 L (24.0-44.0) % Monocytes % 9.9 (0.0-12.0) % Eosinophils % 0.9 (0.00-5.0) % Basophils % 0.5 (0.0-0.4) % Absolute Granulocytes 7.34 H (1.4-6.9) x10^3/uL Basophils # 0.05 (0-0.4) x10^3/uL Sodium 135 L (137-145) mmol/L Potassium 3.7 (3.5-5.1) mmol/L Chloride 104 (98-107) mmol/L Carbon Dioxide 22 (22-30) mmol/L Anion Gap 12.5 (5-15) MEQ/L BUN 12 (9-20) mg/dL Creatinine 0.76 (0.66-1.25) mg/dL Estimated GFR 113.0 ML/MIN Glucose 113 H (74-106) mg/dL Calcium 8.8 (8.4-10.2) mg/dL Total Bilirubin 0.30 (0.2-1.3) mg/dL AST 24 (17-59) U/L ALT 28 (0-50) U/L Alkaline Phosphatase 50 (38-126) U/L Serum Total Protein 7.5 (6.3-8.2) g/dL Albumin 4.0 (3.5-5.0) g/dL Influenza Type A Ag POSITIVE (NEGATIVE) Influenza Type B Ag NEGATIVE (NEGATIVE) RSV (PCR) NEGATIVE (NEGATIVE) SARS-CoV-2 (PCR) NEGATIVE (NEGATIVE) - Progress Progress: unchanged Air Movement: fair Blood Culture(s) Obtained: Yes Antibiotics given: Yes Counseled pt/family regarding: lab results, diagnosis, need for follow-up, rad results - Departure Clinical Impression: Influenza A, Viral pneumonitis Condition: Stable Critical Care Time: No Referrals: AMAYA HILARIO [Primary Care Provider] - Follow up/PCP as directed Instructions: Flu, Adult (DC), Atypical Pneumonia (Mycoplasma and Viral) (DC) Additional Instructions: Discharge/Care Plan MADDY LEAL JR was seen on 02/09/23 in the Emergency Room. The patient was counseled regarding Diagnosis,Lab results, Imaging studies, need for follow up and when to return to the Emergency Room. Prescriptions given: Discharge Note I have spoken with the patient and/or caregivers. I have explained the patient's condition, diagnosis and treatment plan based on the information available to me at this time. I have answered the patient's and/or caregiver's questions and addressed any concerns. The patient and/or caregivers have as good understanding of the patient's diagnosis, condition and treatment plan as can be expected at this point. The vital signs have been stable. The patient's condition is stable and appropriate for discharge from the emergency department. The patient will pursue further outpatient evaluation with the primary care physician or other designated or consulting physician as outlined in the discharge instructions. The patient and/or caregivers are agreeable to this plan of care and follow-up instructions have been explained in detail. The patient and/or caregivers have received these instruction. The patient/and or caregivers are aware that any significant change in condition or worsening of symptoms should prompt an immediate return to this or the closest emergency department or call 911. MADDY LEAL JR was seen on 02/09/23 n the Emergency Room. At that time you were treated for an emergent condition, during your visit Laboratory, Radiology and/or other procedures may have been ordered. It is very important that you follow-up with your Primary Care Physician AMAYA HILARIO within the next 24-48 hours to review your Emergency Room visit and the final results of testing that was ordered. Some test results such as Urine Cultures, Blood Cultures, and other cultures if ordered will not be finalized for 24-48 hours. If you do not have a Primary Care Provider please call the medical records department at [phone] ext [phone] to obtain a copy of your results or you may sign into our patient portal to obtain these results by visiting us @ [email or web address] and completing the following steps: 1. Click on the Patient Portal link 2. Click the Patient Self Enrollment Link to complete the enrollment form and entering your 3. Once the enrollment form is completed you will receive an email with a temporary ID and password at the email address you provided. 4. Next choose a user name and password. Your user name must be at least 4 characters long and your password must be at least 4 characters long. 5. Choose a security question from the list and provide your answer to the question. If you already have signed into the Health Portal you may access your Health Care Information 10/09 by the following steps: 1. Login to our website @ [email or web address] 2. Enter your original user name and password. FAQS [facility] Portal is an online tool that contains your Lab Results, Radiology Reports, Visit History, Discharge Instructions and Health Summary Lab and Radiology Results will not be available for 72 hours on the portal. The Portal is a secure site, passwords are encryted and URLs are re-written so they cannot be copied and pasted. You and authorized family members are the only ones who can access your Portal. Also there is a timeout feature that protects your information if you leave the Portal page open. If you have technical difficulty please use the Contact Us link on the page this will allow you to submit any questions you have regarding the Portal or you may contact the Medical Record Department at [phone]. Forms: Work/School Release Form Prescriptions: Albuterol Sulfate/Budesonide [Airsupra 90-80 Mcg Inhaler] 2 gm IH BID #60 inh Oseltamivir 75 mg [Tamiflu 75MG Capsule] 75 mg PO BID #10 cap
[2023-02-09 13:07] LABS: Absolute Neutrophil Ct (ANC) 7.34 x10^3/uL (1.4-6.9); BASOPHIL % 0.5 % (0.0-0.4); Basophil (Absolute #) 0.05 x10^3/uL (0-0.4); Eosinophil % 0.9 % (0.00-5.0); Hematocrit 42.6 % (42-50); Hemoglobin 14.1 g/dL (12.5-18.0); IMMATURE GRAN # 0.05 x10^3u/L (0.00-0.03); IMMATURE GRAN % 0.5 % (0.00-0.4); Lymphocyte (Absolute #) 2.16 x10^3/uL (1.0-4.6); Lymphocytes % 20.1 % (24.0-44.0); Mean Cell Volume 88.6 fL (78-100); Mean Corpuscular Hemoglobin 29.3 pg (26-32); Mean Corpuscular Hgb Concent. 33.1 g/dL (32-36); Mean Platelet Volume 8.7 fL (7.5-11.0); Monocyte (Absolute #) 1.06 x10^3/uL (0.0-1.3); Monocytes % 9.9 % (0.0-12.0); Neutrophil % 68.1 % (36.0-66.0); Platelet Count 315 x10^3/uL (150-450); Red Blood Count 4.81 x10^6/uL (4.1-5.6); Red Cell Distribution Width 14.1 % (11.5-14.0); White Blood Count 10.8 x10^3/uL (4.0-10.5)
[2023-02-09] MEDS ORDERED: TYLENOL 325 MG ONE (13:17)
[2023-02-09] MEDS ORDERED: Sodium Chloride 0.9% 1000 ML 1,000 ML ONE (13:17)
[2023-02-09] MEDS ORDERED: MOTRIN 600 MG ONE (13:17)
[2023-02-09] MEDS ORDERED: solu-MEDROL 125 MG, Sterile H2O 10 ml 2 ML IV ONE ×2 (13:21)
[2023-02-09] MEDS ORDERED: ROCEPHIN 1 Gm-D5w 50 ml Bag** 1 G/50 ML IVPB IV STA (13:21)
[2023-02-09] MEDS ORDERED: PULMICORT 0.5 MG/2 ML RESPULES IH ONE (13:23)
[2023-02-09] MEDS ORDERED: Sterile H2O 10 ml IJ ONE (13:27)
[2023-02-09] MEDS ORDERED: solu-MEDROL ONE (13:27)
[2023-02-09] MEDS ORDERED: ROCEPHIN 1 Gm-D5w 50 ml Bag** 1 G/50 ML IVPB IV ONE (13:28)
[2023-02-09 13:30] LABS: ANION GAP 12.5 MEQ/L (5-15); BILIRUBIN,TOTAL 0.3 mg/dL (0.2-1.3); Calcium 8.8 mg/dL (8.4-10.2); Creatinine 1 0.76 mg/dL (0.66-1.25); Potassium 3.7 mmol/L (3.5-5.1); Total Protein 7.5 g/dL (6.3-8.2)
[2023-02-09 13:41] LABS: INFLUENZA B NEGATIVE (NEGATIVE); RESPIRATORY SYNCTIAL VIRUS NEGATIVE (NEGATIVE); SARS-CoV-2 Xpert Express NEGATIVE (NEGATIVE)
[2023-02-09 13:43] LABS: INFLUENZA A POSITIVE (NEGATIVE)
[2023-02-09 13:46] VITALS: PULSE 83
[2023-02-09] MEDS ORDERED: Tamiflu 75MG Capsule PO ONE ×2 (13:48→13:51)
[2023-02-09 13:54] VITALS: O2SAT 96
[2023-02-09 14:03] VITALS: BP 114/63
--- NOTE | 2023-02-09 20:58 | XRAY ---
Indication: Fever. Cough. 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 Remaining heart and lungs unremarkable. Bony thorax intact.
== END 2023-02-09 14:08 | disposition home or self-care (01) ==
LOC: ED 12:04
DX: J10.00 Influenza due to other identified influenza virus with unspecified type of pneumonia (principal); R50.9 Fever, unspecified; R06.02 Shortness of breath; R05.3 Chronic cough; R51.9 Headache, unspecified; M79.10 Myalgia, unspecified site; I10 Essential (primary) hypertension; Z79.899 Other long term (current) drug therapy; Z28.310 Unvaccinated for COVID-19; Z72.0 Tobacco use
CPT/HCPCS: 0241U; 36000; 36415; 71046; 80053; 85025; 87040; 94640; 96360; 96365; 96374; 99284; J0696; J2930; A9270-GY